=== PATIENT | male | born 1970 | race American Indian/Alaskan Native ===

== ENCOUNTER 2022-05-08 22:15 | Inpatient (IN) | payer MEDICAID ==
[2022-05-08 22:55] LABS: BASOPHILS % (AUTO) 0.1 %; HCT - HEMATOCRIT 42.5 % (42.0-52.0); HGB - HEMOGLOBIN 14.6 g/dL (14.0-18.0); LYMPHOCYTES % (AUTO) 4.8 %; MEAN CORPUSCULAR HEMOGLOBIN 30.5 pg (27.0-31.0); MEAN CORPUSCULAR HGB CONC 34.4 g/dL (32.0-36.0); MEAN CORPUSCULAR VOLUME 88.7 fL (80.0-94.0); MEAN PLATELET VOLUME 11.9 fL (7.4-11.4); MONOCYTES % (AUTO) 4.5 %; PLT - PLATELET COUNT 322 10^3/uL (130-450); RED BLOOD COUNT 4.79 10^6/uL (4.70-6.10); RED CELL DISTRIBUTION WIDTH 12.2 % (12.0-15.0); VBG BASE EXCESS -0.5 mmol/L (-2 - +2); VBG OXYGEN SATURATION 66.1 % (60-80); VBG PH 7.372 (7.31-7.41); VBG PO2 33.7 mmHg (25-47); VBG TOTAL CO2 26.3 mmol/L (24-29); WHITE BLOOD COUNT 24.3 x10^3/uL (4.8-10.8)
[2022-05-08 22:58] LABS: KETONES, SERUM (ACETEST) SMALL (NEGATIVE)
[2022-05-08 22:59] LABS: ABNORMAL LYMPHS % (MANUAL) 0 %
[2022-05-08 23:11] LABS: ALBUMIN 3.2 g/dL (3.2-5.5); ALBUMIN/GLOBULIN RATIO 0.6 (1.0-2.2); ALKALINE PHOSPHATASE 420 IU/L (42-121); ALT ALANINE AMINOTRANSFERASE 74 IU/L (10-60); AST ASPARTATE AMINOTRANSFERASE 27 IU/L (10-42); BILIRUBIN,TOTAL 1.1 mg/dL (0.2-1.0); BUN - BLOOD UREA NITROGEN 27 mg/dL (6-20); CALCIUM 8.9 mg/dL (8.5-10.3); CARBON DIOXIDE - CO2 24 mmol/L (21-32); CHLORIDE 82 mmol/L (101-111); CREATININE 1.6 mg/dL (0.6-1.2); GFR - MDRD 46 (>89); LIPASE 23 U/L (22-51); PHOSPHORUS 4.9 mg/dL (2.5-4.6); POTASSIUM 4.4 mmol/L (3.5-5.0); SODIUM 124 mmol/L (135-145); TOTAL PROTEIN 8.5 g/dL (6.7-8.2)
[2022-05-08 23:12] LABS: GLUCOSE 837 mg/dL (70-100)
--- NOTE | 2022-05-08 23:25 | ED Physician Documentation ---
History of Present Illness - Stated complaint Stated Complaint: DIABETIC SHOCK - Chief complaint Chief Complaint: General - History obtained from History obtained from: Patient - Additonal information Additional information: HPI from patient. My HPI and review of systems is somewhat limited due to patient being terse with answers to my questions; some of his answers are irrelevant to the question as ked. Patient tells me he is here because "I am dehydrated". I asked him what makes him feel he is dehydrated, tells me "I am diabetes type 2" And that he has been "thirsty" for "a few days". Patient tells me he is supposed to be taking insulin but hasn't taken insulin, nor any medication, for approximately a year. He says the reason for this is that his insurance will not cover any medications.He has had nausea but no vomiting. He describes very little p.o. intake over the past few days, although when I asked him why he is not taking in much by mouth, he returns to telling me he is dehydrated and feels very thirsty.He tells me "I have been here before, check my chart". Review of Systems Constitutional: denies: Fever GI: reports: Nausea. denies: Abdominal Pain, Vomiting Neurologic: denies: Generalized weakness, Focal weakness, Numbness, Headache PD PAST MEDICAL HISTORY - Past Medical History Endocrine/Autoimmune: Other (patient tells me he is "diabetes two" but also says he is supposed to be taking insulin) - Present Medications Home Medications: Ambulatory Orders Medication Instructions Recorded Confirmed No Known Home Medications 05/08/22 05/08/22 - Allergies Allergies/Adverse Reactions: Allergies Allergy/AdvReac Type Severity Reaction Status Date / Time No Known Drug Allergies Allergy Verified 05/08/22 22:20 PD ED PE NORMAL - Vitals Vital signs reviewed: Yes - General General: Alert and oriented X 3, No acute distress, Well developed/nourished - HEENT HEENT: Other (dry mucous membranes) - Neck Neck: Supple, no meningeal sign - Cardiac Cardiac: No murmur - Respiratory Respiratory: No respiratory distress, Clear bilaterally - Abdomen Abdomen: Soft, Non tender - Derm Derm: Normal color, Warm and dry - Extremities Extremities: No edema - Neuro Neuro: Alert and oriented X 3, Normal speech Eye Opening: Spontaneous Motor: Obeys Commands Verbal: Oriented GCS Score: 15 PD ED PE EXPANDED - Cardiac Cardiac: Tachy, Regular Rhythm Results - Vitals Vitals: Vital Signs - 24 hr 05/08/22 05/08/22 05/09/22 22:20 22:53 00:00 Temperature 36.5 C Heart Rate 120 H 118 H 132 H Respiratory 16 16 21 Rate Blood Pressure 130/100 H 162/115 H 141/104 H O2 Saturation 96 97 99 05/09/22 01:05 Temperature Heart Rate 125 H Respiratory 23 Rate Blood Pressure 143/112 H O2 Saturation 98 Oxygen O2 Source Room air - Labs Labs: Laboratory Tests 05/08/22 05/08/22 05/08/22 22:45 22:45 22:45 WBC 24.3 H RBC 4.79 Hgb 14.6 Hct 42.5 MCV 88.7 MCH 30.5 MCHC 34.4 RDW 12.2 Plt Count 322 MPV 11.9 H Neut # (Auto) Not Reportable Lymph # (Auto) Not Reportable [place] # (Auto) Not Reportable Eos # (Auto) Not Reportable Baso # (Auto) Not Reportable Absolute Nucleated RBC Not Reportable Total Counted 100 Band Neuts % (Manual) 2 Abnorm Lymph % (Manual) 0 Nucleated RBC % Not Reportable Neutrophils # (Manual) 17.7 H Lymphocytes # (Manual) 4.6 H Monocytes # (Manual) 1.0 Eosinophils # (Manual) 1.0 H Basophils # (Manual) 0.0 Differential Comment MANUAL DIFFERENTIAL Platelet Estimate NORMAL (130-450,000) RBC Morph Micro Appear NORMAL APPEARANCE VBG pH 7.372 VBG pCO2 44.0 VBG pO2 33.7 VBG HCO3 25.0 VBG Total CO2 26.3 VBG O2 Saturation 66.1 VBG Base Excess -0.5 Sodium 124 L Potassium 4.4 Chloride 82 L Carbon Dioxide 24 Anion Gap 18.0 H BUN 27 H Creatinine 1.6 H Estimated GFR (MDRD) 46 L Glucose 837 H* Calcium 8.9 Phosphorus 4.9 H Magnesium 2.0 Total Bilirubin 1.1 H AST 27 ALT 74 H Alkaline Phosphatase 420 H Total Protein 8.5 H Albumin 3.2 Globulin 5.3 H Albumin/Globulin Ratio 0.6 L Lipase 23 Urine Color Urine Clarity Urine pH Ur Specific [place] Urine Protein Urine Glucose (UA) Urine Ketones Urine Occult Blood Urine Nitrite Urine Bilirubin Urine Urobilinogen Ur Leukocyte Esterase Ur Microscopic Review Urine Culture Comments Nasal Adenovirus (PCR) Nasal B. parapertussis DNA (PCR) Nasal Coronavir 229E PCR Nasal Coronavir HKU1 PCR Nasal Coronavir NL63 PCR Nasal Coronavir OC43 PCR Nasal Enterovir/Rhinovir PCR Nasal Influenza B PCR Nasal Influenza A PCR Nasal Parainfluen 1 PCR Nasal Parainfluen 2 PCR Nasal Parainfluen 3 PCR Nasal Parainfluen 4 PCR Nasal RSV (PCR) Nasal B.pertussis DNA PCR Nasal C.pneumoniae (PCR) Matt Human Metapneumo PCR Nasal M.pneumoniae (PCR) Nasal SARS-CoV-2 (PCR) Serum Ketones SMALL H 05/08/22 05/08/22 05/09/22 23:47 23:56 01:03 WBC RBC Hgb Hct MCV MCH MCHC RDW Plt Count MPV Neut # (Auto) Lymph # (Auto) [place] # (Auto) Eos # (Auto) Baso # (Auto) Absolute Nucleated RBC Total Counted Band Neuts % (Manual) Abnorm Lymph % (Manual) Nucleated RBC % Neutrophils # (Manual) Lymphocytes # (Manual) Monocytes # (Manual) Eosinophils # (Manual) Basophils # (Manual) Differential Comment Platelet Estimate RBC Morph Micro Appear VBG pH VBG pCO2 VBG pO2 VBG HCO3 VBG Total CO2 VBG O2 Saturation VBG Base Excess Sodium Potassium Chloride Carbon Dioxide Anion Gap BUN Creatinine Estimated GFR (MDRD) Glucose 525 H* Calcium Phosphorus Magnesium Total Bilirubin AST ALT Alkaline Phosphatase Total Protein Albumin Globulin Albumin/Globulin Ratio Lipase Urine Color YELLOW Urine Clarity CLEAR Urine pH 6.0 Ur Specific [place] <=1.005 Urine Protein NEGATIVE Urine Glucose (UA) >=1000 H Urine Ketones NEGATIVE Urine Occult Blood TRACE-INTA Urine Nitrite NEGATIVE Urine Bilirubin NEGATIVE Urine Urobilinogen 0.2 (NORMAL) Ur Leukocyte Esterase NEGATIVE Ur Microscopic Review NOT INDICATED Urine Culture Comments NOT INDICATED Nasal Adenovirus (PCR) NOT DETECTED Nasal B. parapertussis DNA (PCR) NOT DETECTED Nasal Coronavir 229E PCR NOT DETECTED Nasal Coronavir HKU1 PCR NOT DETECTED Nasal Coronavir NL63 PCR NOT DETECTED Nasal Coronavir OC43 PCR NOT DETECTED Nasal Enterovir/Rhinovir PCR NOT DETECTED Nasal Influenza B PCR NOT DETECTED Nasal Influenza A PCR NOT DETECTED Nasal Parainfluen 1 PCR NOT DETECTED Nasal Parainfluen 2 PCR NOT DETECTED Nasal Parainfluen 3 PCR NOT DETECTED Nasal Parainfluen 4 PCR NOT DETECTED Nasal RSV (PCR) NOT DETECTED Nasal B.pertussis DNA PCR NOT DETECTED Nasal C.pneumoniae (PCR) NOT DETECTED Matt Human Metapneumo PCR NOT DETECTED Nasal M.pneumoniae (PCR) NOT DETECTED Nasal SARS-CoV-2 (PCR) NOT DETECTED Serum Ketones PD Medical Decision Making - ED course Complexity details: reviewed old records, reviewed results, re-evaluated patient, considered differential, d/w patient ED course: Labs ordered and results reviewed by me: CBC, VBG, serum ketones,ER abdominal panel, UA. Most notable abnormalities on these tests include a white blood cell count of 24.3, blood sugar of 837, hyponatremia with sodium of 124, small serum ketones. Also noted are elevated BUN and creatinine (BUN 27, creatinine 1.6).Urinalysis shows glycosuria but no ketonuria. Is given 10 units of regular insulin IV as well as 2 L of normal saline. After these interventions, on recheck of fingerstick for blood sugar, the result is "high". Thus a serum blood glucose is ordered and the lab result returns with blood glucose of 525. Note that at the time of this patient's presentation, as well as at the time of dictation of this note, this patient's chart has not yet been merged with previous visits to this ER. At the time of the dictation of this chart, [employer] indicates that this patient has no previous visits to this hospital. However, when [facility] records for this patient's name, I am able to find 3 previous ER visits, 1 of which resulted in an inpatient stay. Patient was admitted to this hospital December 18, 2015 for new onset of diabetes and was discharged with prescriptions that included insulin and a glucometer. I also note that when he was first admitted on the December 18, 2015 visit, he had mildly elevated creatinine (1.4), but this normalized after IV fluids and treatment and subsequent creatinine levels were normal. Thus, it would appear that the BUN and creatinine obtained on today's visit are not his baseline (although the previous information is from 2016). I discussed this case with the telehealth physician and they accept patient for admission to [facility]. Departure - Departure Disposition: 66 [facility] DC/Xfer Clinical Impression: Diabetic ketoacidosis Qualifiers: Diabetes mellitus type: type 1 Diabetes mellitus complication detail: without coma Qualified Code(s): E10.10 - Type 1 diabetes mellitus with ketoacidosis without coma Condition: Stable Discharge Date/Time: 05/09/22 02:27
[2022-05-08 23:31] LABS: BAND NEUTROPHILS % (MANUAL) 2 %; LYMPHOCYTES # (MANUAL) 4.6 10^3/uL (1.5-3.5); LYMPHOCYTES % (MANUAL) 19 %; NEUTROPHILS # (MANUAL) 17.7 10^3/uL (1.5-6.6); RBC MORPHOLOGY (MULTIPLE) NORMAL APPEARANCE (NORMAL)
[2022-05-08 23:32] LABS: DIFFERENTIAL COMMENT MANUAL DIFFERENTIAL; PLATELET ESTIMATE, MANUAL NORMAL (130-450,000) (NORMAL)
[2022-05-08] MEDS ORDERED: INSULIN REGULAR HUMAN 100 UNIT/1 ML 10 ML MDV IVP STA (23:33)
[2022-05-08] MEDS ORDERED: SODIUM CHLORIDE 0.9% 1,000 ML IV STA (23:33)
[2022-05-09] LABS: BILIRUBIN,URINE NEGATIVE (NEGATIVE); GLUCOSE, URINE (UA) >=1000 mg/dL (NEGATIVE); KETONES,URINE (UA) NEGATIVE (NEGATIVE); LEUKOCYTE ESTERASE, URINE NEGATIVE (NEGATIVE); NITRITE,URINE NEGATIVE (NEGATIVE); OCCULT BLOOD,URINE TRACE-INTA (NEGATIVE); PROTEIN,URINE NEGATIVE (NEGATIVE); UROBILINOGEN,URINE 0.2 (NORMAL) E.U./dL (NORMAL)
[2022-05-09 00:04] LABS: CLARITY,URINE CLEAR (CLEAR)
[2022-05-09 00:54] LABS: B. PARAPERTUSSIS- RESP PCR PAN NOT DETECTED; B. PERTUSSIS- RESP PCR PANEL NOT DETECTED; C. PNEUMONIAE- RESP PCR PANEL NOT DETECTED; CORONAVIRUS 229E-RESP PCR NOT DETECTED; CORONAVIRUS HKU1-RESP PCR NOT DETECTED; CORONAVIRUS NL63-RESP PCR NOT DETECTED; CORONAVIRUS OC43-RESP PCR NOT DETECTED; HUMAN METAPNEUMOVIRUS NOT DETECTED; INFLUENZA A- RESP PCR PANEL NOT DETECTED; INFLUENZA B - RESP PCR PANEL NOT DETECTED; M. PNEUMONIAE- RESP PCR PANEL NOT DETECTED; PARAINFLUENZA VIRUS 1 NOT DETECTED; PARAINFLUENZA VIRUS 2 NOT DETECTED; PARAINFLUENZA VIRUS 3 NOT DETECTED; PARAINFLUENZA VIRUS 4 NOT DETECTED; RHINOVIRUS/ENTEROVIRUS NOT DETECTED; RSV- RESP PCR PANEL NOT DETECTED; SARS-CoV-2 -RESP PCR PANEL NOT DETECTED
[2022-05-09] MEDS ORDERED: ONDANSETRON 4 MG/2 ML VIAL IVP PRN (01:32)
--- NOTE | 2022-05-09 01:46 | HISTORY & PHYSICAL EXAMINATION ---
Chief Complaint - Chief Complaint Chief Complaint: dehydrated History of Present Illness - Admitted From Admitted From:: ED - History Obtained From Records Reviewed: ED records History obtained from: ED provider and the pt - History of Present Illness HPI Comment/Other: This is a 51 yo male with diabetes who does not take any diabetic meds at home c khris to the ED tonight for cc of feeling dehydrated for few days. Pt also has some nausea but no emesis. In the ED, the lab showed glucose of 830, high anion gap, leukocytosis and JILLIAN vs CKD III, pt received 10 units of IV Insulin x1 which brought down his glucose to 530, no clinical signs of infection per the ED provider, and the hospitalist was contacted to admit the pt for further management. History - Past Medical History Endocrine/Autoimmune: reports: Type 2 diabetes - Past Surgical History Other past surgical history: none - Family & Social History Family History Comment/Other: non-contributory - Substance History Use: Uses substance without health or social issues: NONE Abuse: Recurrent use of substance despite neg consequences: NONE Dependence: Experiences withdrawal or developed tolerances: NONE Meds/Allgy - Home Medications Home Medications: Ambulatory Orders Medication Instructions Recorded Confirmed No Known Home Medications 05/08/22 05/08/22 - Allergies Allergies/Adverse Reactions: Allergies Allergy/AdvReac Type Severity Reaction Status Date / Time No Known Drug Allergies Allergy Verified 05/08/22 22:20 Review of Systems - Other Findings Other Findings: For Positive ROS symptoms see above. General: negative for fevers, chills. Respiratory: negative for cough, wheezing Cardiovascular: negative for chest pain Gastrointestinal - negative for abdominal pain, vomiting, diarrhea Genitourinary - negative for flank pain, hematuria, dysuria or trouble voiding symptoms. Exam - Vital Signs Reviewed Vital Signs: Yes Vital Signs: Vital Signs x48h Temp Pulse Resp BP Pulse Ox 05/09/22 01:05 125 H 23 143/112 H 98 05/09/22 00:00 132 H 21 141/104 H 99 05/08/22 22:53 118 H 16 162/115 H 97 05/08/22 22:20 36.5 C 120 H 16 130/100 H 96 - Physical Exam Comments/Other: (with a help of the ED provider) GENERAL: Patient A and O x 3, NAD. HEENT: Atraumatic, EOMI. PULMONARY: CTAB, equal aeration bilaterally. CARDIAC: Sinus tachy, no murmurs. GASTROINTESTINAL: NABS, soft, non-tender. NEURO: CN 2 to 12 grossly intact, moving all 4 exts. Conclusion/Plan - Lab Results Lab results reviewed: Yes Fish Bones: 05/08/22 22:45 05/09/22 01:03 - Other Other Results/Comments: Assessment/Plan: 1. Mild DKA vs HHS 2. SIRS vs Sepsis 3. HTN 4. JILLIAN vs CKD III 5. Hyponatremia - Started him on DKA/HHS protocol with insulin drip, check poc glucose q1hrs while on the drip, check renal panel q4hrs, changed to SQ insulin when the anion gap closes, bicarb and pH are fine, started him on IVF hydration, electrolytes replacement protocol, the ED provider told me it is sinus tachy, UA and respiratory panel are negative, will check bld culture and CXR for leukocytosis, IVF for JILLIAN and hypoNa, heparin sq bid for DVT prophylaxis.
[2022-05-09] MEDS ORDERED: INSULIN REGULAR HUMAN 100 UNIT in SODIUM CHLORIDE 0.9% 100ML 99 ML IV SCH (02:00)
[2022-05-09] MEDS ORDERED: SODIUM CHLORIDE 0.9% 1,000 ML IV SCH (02:00)
[2022-05-09] MEDS ORDERED: INSULIN REGULAR HUMAN 100 UNIT/1 ML 10 ML MDV ONE (02:28)
--- NOTE | 2022-05-09 02:42 | XRAY Report ---
PROCEDURE: Chest 1 View X-Ray INDICATIONS: leukocytosis TECHNIQUE: One view of the chest was acquired. COMPARISON: None. FINDINGS: Surgical changes and devices: None. Lungs and pleura: No pleural effusions or pneumothorax. Lungs are clear. Mediastinum: Mediastinal contours appear normal. Heart size is normal. Bones and chest wall: No suspicious bony lesions. Overlying soft tissues appear unremarkable. IMPRESSION: 1. No acute cardiopulmonary disease. Reviewed by: Keagan Ayers MD on 05/09/2022 2:41 AM [facility] Approved by: Keagan Ayers MD on 05/09/2022 2:41 AM [facility] Station ID: [id number]
[2022-05-09] MEDS: SODIUM CHLORIDE FLUSH 0.9% 10 ML SYRINGE IVP PRN ×3 (02:52→21:28)
[2022-05-09 03:57] LABS: CALCIUM 9.4 mg/dL (8.5-10.3); CREATININE 1.3 mg/dL (0.6-1.2); MAGNESIUM 2.1 mg/dL (1.7-2.8); PHOSPHORUS 3.2 mg/dL (2.5-4.6); POTASSIUM 3.7 mmol/L (3.5-5.0)
[2022-05-09] MEDS: POTASSIUM CHLOR 10 MEQ/100 ML 10 MEQ/100 ML BAG IV SCH ×2 (05:15→06:14)
[2022-05-09 05:35] LABS: CALCIUM, IONIZED 1.14 mmol/L (1.15-1.33); VBG PH 7.49 (7.31-7.41)
[2022-05-09 05:39] LABS: BASOPHILS % (AUTO) 0.1 %; HCT - HEMATOCRIT 40.1 % (42.0-52.0); HGB - HEMOGLOBIN 14.2 g/dL (14.0-18.0); LYMPHOCYTES % (AUTO) 8.2 %; MEAN CORPUSCULAR HEMOGLOBIN 30.7 pg (27.0-31.0); MEAN CORPUSCULAR HGB CONC 35.4 g/dL (32.0-36.0); MEAN CORPUSCULAR VOLUME 86.8 fL (80.0-94.0); MEAN PLATELET VOLUME 11.5 fL (7.4-11.4); MONOCYTES % (AUTO) 4.4 %; NEUTROPHILS % (AUTO) 86.8 %; PLT - PLATELET COUNT 299 10^3/uL (130-450); RED BLOOD COUNT 4.62 10^6/uL (4.70-6.10); RED CELL DISTRIBUTION WIDTH 12.2 % (12.0-15.0); WHITE BLOOD COUNT 22.9 x10^3/uL (4.8-10.8)
[2022-05-09 05:40] LABS: ABNORMAL LYMPHS % (MANUAL) 0 %
[2022-05-09 05:44] LABS: CALCIUM 9.3 mg/dL (8.5-10.3); CREATININE 1.1 mg/dL (0.6-1.2); POTASSIUM 3.7 mmol/L (3.5-5.0)
[2022-05-09 05:47] LABS: ALBUMIN 2.8 g/dL (3.2-5.5); CALCIUM 9.4 mg/dL (8.5-10.3); CREATININE 1.1 mg/dL (0.6-1.2); PHOSPHORUS 2.7 mg/dL (2.5-4.6); POTASSIUM 3.8 mmol/L (3.5-5.0)
[2022-05-09 05:48] LABS: MAGNESIUM 2.1 mg/dL (1.7-2.8); PHOSPHORUS 2.7 mg/dL (2.5-4.6)
[2022-05-09 06:00] LABS: BAND NEUTROPHILS % (MANUAL) 2 %; DIFFERENTIAL COMMENT MANUAL DIFFERENTIAL; LYMPHOCYTES % (MANUAL) 13 %; MONOCYTES # (MANUAL) 0.9 10^3/uL (0.0-1.0); PLATELET ESTIMATE, MANUAL NORMAL (130-450,000) (NORMAL); RBC MORPHOLOGY (MULTIPLE) NORMAL APPEARANCE (NORMAL)
[2022-05-09] MEDS: PANTOPRAZOLE 40 MG VIAL IVP SCH (07:17)
[2022-05-09 07:55] LABS: MAGNESIUM 2.2 mg/dL (1.7-2.8); PHOSPHORUS 2.8 mg/dL (2.5-4.6)
[2022-05-09 07:58] LABS: CREATININE 1.1 mg/dL (0.6-1.2); POTASSIUM 3.9 mmol/L (3.5-5.0)
[2022-05-09] MEDS: DEXTROSE 5%-0.9% NACL 1,000 ML IV SCH ×2 (08:21→16:34)
[2022-05-09] MEDS: HEPARIN 5,000 UNIT/ML VIAL SUBQ SCH ×2 (09:10→20:43)
[2022-05-09] MEDS: SODIUM CHLORIDE FLUSH 0.9% 10 ML SYRINGE IVP SCH ×3 (09:15→21:28)
[2022-05-09 10:14] LABS: ESTIMATED AVERAGE GLUCOSE 435 mg/dL (70-100); HEMOGLOBIN A1c% 16.8 % (4.27-6.07)
--- NOTE | 2022-05-09 11:39 | PROVIDER PROGRESS NOTE ---
Hospitalist Cross-cover Note - Cross-Cover Note Cross-Cover Note: I reviewed all his labs. This morning his serum glucose is 170-200, serum ketones are negative. Patient is not nauseated, is thirsty and is eager to drink and be started on diet since he is not nauseated I questioned the patient about his diabetic management: He says he has not been on a diabetic diet and does not know why. He says he was on insulin for 6 months over a year ago. Over the past 1 year, he reports that his PCP has ordered insulin for him but the pharmacy has not filled it and he changed doctors and had the same problem not getting insulin from the next provider and therefore has been without insulin for 1 year. No doctor has put him on oral agents during that year, he states. Exam is unremarkable today except he is disheveled and his speech is somewhat slurred and is very rather Impression: DKA-resolved DM type II Noncompliance with medical management Plan: Stop insulin drip Started diabetic diet Start Lantus 10 units subq in p.m. Continue with sliding scale insulin coverage and start fingerstick checks with meals Nutrition consult for diabetic teaching Social work help may be needed if there is indeed problems filling an insulin prescription for this may.
[2022-05-09] MEDS: INSULIN LISPRO 300 UNIT/3 ML PEN SUBQ SCH ×3 (12:36→20:44)
[2022-05-09] MEDS ORDERED: INSULIN GLARGINE-YFGN 300 UNIT/3 ML PEN SUBQ SCH (21:00)
[2022-05-10] MEDS: DEXTROSE 5%-0.9% NACL 1,000 ML IV SCH (01:07)
[2022-05-10 04:45] LABS: BASOPHILS % (AUTO) 0.1 %; EOSINOPHILS # (AUTO) 0.1 10^3/uL (0.0-0.7); EOSINOPHILS % (AUTO) 0.5 %; HCT - HEMATOCRIT 36.2 % (42.0-52.0); HGB - HEMOGLOBIN 12.5 g/dL (14.0-18.0); LYMPHOCYTES # (AUTO) 1.8 10^3/uL (1.5-3.5); LYMPHOCYTES % (AUTO) 13.6 %; MEAN CORPUSCULAR HEMOGLOBIN 30.6 pg (27.0-31.0); MEAN CORPUSCULAR HGB CONC 34.5 g/dL (32.0-36.0); MEAN CORPUSCULAR VOLUME 88.5 fL (80.0-94.0); MEAN PLATELET VOLUME 11.2 fL (7.4-11.4); MONOCYTES # (AUTO) 0.6 10^3/uL (0.0-1.0); MONOCYTES % (AUTO) 4.5 %; NEUTROPHILS # (AUTO) 10.9 10^3/uL (1.5-6.6); NEUTROPHILS % (AUTO) 80.9 %; PLT - PLATELET COUNT 259 10^3/uL (130-450); RED BLOOD COUNT 4.09 10^6/uL (4.70-6.10); RED CELL DISTRIBUTION WIDTH 12.2 % (12.0-15.0); WHITE BLOOD COUNT 13.4 x10^3/uL (4.8-10.8)
[2022-05-10 04:54] LABS: CALCIUM 8.5 mg/dL (8.5-10.3); CREATININE 0.8 mg/dL (0.6-1.2); MAGNESIUM 1.9 mg/dL (1.7-2.8); PHOSPHORUS 2.1 mg/dL (2.5-4.6)
[2022-05-10] MEDS: PANTOPRAZOLE 40 MG VIAL IVP SCH (06:31)
[2022-05-10] MEDS: SODIUM CHLORIDE FLUSH 0.9% 10 ML SYRINGE IVP PRN (06:31)
[2022-05-10] MEDS: NEUTRA-PHOS 250 MG TABLET PO SCH ×2 (06:31→08:20)
[2022-05-10] MEDS: HEPARIN 5,000 UNIT/ML VIAL SUBQ SCH (08:19)
[2022-05-10] MEDS: INSULIN LISPRO 300 UNIT/3 ML PEN SUBQ SCH (08:21)
[2022-05-10] MEDS: SODIUM CHLORIDE FLUSH 0.9% 10 ML SYRINGE IVP SCH (08:21)
[2022-05-10] MEDS ORDERED: SODIUM CHLORIDE 0.9% 1,000 ML IV SCH (09:00)
[2022-05-10] MEDS ORDERED: INSULIN LISPRO 300 UNIT/3 ML PEN SUBQ SCH (12:00)
[2022-05-10] MEDS ORDERED: polyethylene glycoL 3350 17 GM PACKET PO SCH (13:00)
--- NOTE | 2022-05-10 13:06 | Discharge Plan ---
Discharge Plan Problem Reviewed?: Yes Disposition: Home, Self Care Condition: Fair Prescriptions: Blood-Glucose Meter [Glucometer] 1 each [facility] #1 each Insulin Lispro [Humalog Kwikpen U-100] 2 - 10 unit SUBQ 0800,1200,1700,2100 #1 ea Insulin Glargine [Lantus Solostar] 10 unit SUBQ BID #1 ea Lancets/Blood Glucose Strips [Pogo Automatic Test Cartridge] 1 each [facility] #120 ea Diet: Diabetic (PLEASE start eating a low-carb, diabetic diet) Activity Restrictions: Activity as Tolerated Shower Restrictions: No Instruction Topics: DKA Prevent Ch Health Concerns: You were hospitalized in the ICU to treat diabetic ketoacidosis, which is a serious complication for a Diabetic. You said you have not used Insulin in the past 1 year, because you haven't been able to get a prescription in the past year. We have found that you have not had a doctor for the last 2-3 years, not just the past 1 year. For an insulin- dependent diabetic to not take insulin for such a long period of time, as 2-3 years, is a serious threat to your health and wellbeing. You need to take your diabetes more seriously. You are being discharged home with a prescription for long-acting Insulin and short acting correction insulin. Take the long acting Insulin twice a day. You need to check your blood sugar before meals 3 times a day and before bedtime and take the short acting insulin at a dose based on a scale. The scale has been provided for you. There are also prescriptions for 1 month of lancets, glucometer strips and a new glucometer has been ordered for you. These Insulin prescriptions will only last you 1 month, after that the Insulin prescriptions need to be ordered by an office doctor. If you are using drugs, stop that, because that is also harming your health. Our staff has explained how, and walked you through how, to get a doctor's appointment with a provider that will take your health insurance. Please make an appointment soon to see a provider in [facility]. The [facility] clinic here also has a Diabetic division that can help you. To reach them call [phone], ext [phone]. Plan of Treatment: As above. Care Goals: Improvement in symptoms and stabilization are the goals. Assessment: These instructions are provided for you as a reminder. Follow-Up Care: [facility] - Diabetes Ed No Smoking: If you smoke, Please STOP! Call for help.
[2022-05-10 13:59] VITALS: BP 163/102
--- NOTE | 2022-05-10 14:16 | DISCHARGE SUMMARY ---
Discharge Summary Admit Date: 05/09/22 Discharge Date: 05/10/22 Discharging Provider: Dr Hanna Cooper Primary Care Provider: None Condition at Discharge: Fair Discharge Disposition: 01 Home, Self Care - HPI History of Present Illness: This is a 51 yo male with diabetes who does not take any diabetic meds at home came to the ED tonight for cc of feeling dehydrated for few days. Pt also has some nausea but no emesis. In the ED, the lab showed glucose of 830, serum ketones present and small, high anion gap of 18, pH of 7.3, leukocytosis of 24 and JILLIAN vs CKD III (BUN/creat 27/1.6), serum sodium 124. The pt received 10 units of IV Insulin x1 which brought down his glucose to 530. He had no clinical signs of infection per the ED provider, and the Hospitalist [facility] night doctor was contacted to admit the pt for further management of DKA and dehydration. The patient was visibly dehydrated. He stated he had not been able to get Insulin from his doctor, or another (new) doctor, for the last 1 year, because "it was not prescribed correctly and the pharmacy would not fill it". He does not follow a Diabetic diet he said. He used to take Insulin for about 6 mos, but that was years ago. No doctor has put him on oral agents during that year, he stated. He lives with a roommate. He does not work, he said, "because no one will hire a diabetic", but is not on disability. He denied alcohol or substance abuse. No tox screen was done. - HOSPITAL COURSE Hospital Course: 1) DKA He was admitted to the ICU and started on a DKA protocol with an insulin drip and saline iv. Clear liquid diet was quickly advanced to a solid diabetic diet, which he was able to tolerate. When the serum ketones became negative, he was put on IV saline. He was started on Lantus 10 units subq in p.m and sliding scale Reg Insulin coverage. His glu ran in the 300's. 2) DM type 2 His A1c came back at 16.8, indicating extremely poor diabetic control. Nutrition consult was requested for diabetic teaching. He was advised to start following a diabetic diet. He was discharged home on new prescriptions (that would be covered by his insurance): NPH insulin 10 units subq twice daily, and Regular insulin, dosed on a sliding scale and he was given the scale to display on his r efrigerator. New prescriptions were also sent for a glucometer, lancets and glucometer strips. 3) Leukocytosis WBC of 24 was felt to be from demargination since there were no signs of a source of infection. The next day his white blood count was 22 and on day of discharge was 13, without receiving any antibiotics. 4) Hyponatremia This was likely pseudohyponatremia because of the very elevated glucose. He was started on saline. The next several sodium levels were in a normal range, as the serum glu improved. 5) JILLIAN His tachycardia and his elevated BUN/creatinine normalized with IV saline hydration that was given for several days. 6) Noncompliance with medical management On the day of discharge she was advised to get a PCP for refills and further management. Our staff and project management specialist helped him, after noting that his current health insurance did not let him see a provider (during the last 1 year ) that was associated with [facility], and therefore suspected that he had not seen a doctor in 2 to 3 years. He admitted to that finally. Therefore this man has not had any diabetic management for 2 to 3 years. He was instructed as to the importance of managing his diabetes by Hospitalist and other staff. He was offered to come to the [facility] Diabetic Education division, for getting help as well. - ALLERGIES Allergies/Adverse Reactions: Allergies Allergy/AdvReac Type Severity Reaction Status Date / Time No Known Drug Allergies Allergy Verified 05/09/22 09:44 - MEDICATIONS Home Medications: Ambulatory Orders Medication Instructions Recorded Confirmed Blood-Glucose Meter [Glucometer] 1 each [facility] #1 each 05/10/22 Insulin Glargine [Lantus Solostar] 10 unit SUBQ BID #1 ea 05/10/22 Insulin Lispro [Humalog Kwikpen 2 - 10 unit SUBQ 05/10/22 U-100] 0800,1200,1700,2100 #1 ea Lancets/Blood Glucose Strips [Pogo 1 each [facility] #120 ea 05/10/22 Automatic Test Cartridge] - PHYSICAL EXAM AT DISCHARGE General Appearance: positive: No acute distress, Alert, Other (Disheveled) Eyes Bilateral: positive: Normal inspection ENT: positive: No signs of dehydration Neck: positive: Nml inspection, No JVD Respiratory: positive: No respiratory distress, Breath sounds nml Cardiovascular: positive: Regular rate & rhythm, No murmur Abdomen: positive: Nml bowel sounds, No distention, Tenderness (and firmness from constipation suspected) Skin: positive: Warm, Dry Extremities: positive: Non-tender, No pedal edema, Other (Poor hygiene) Neurologic/Psychiatric: positive: Oriented x3, Motor nml - LABS Result Diagrams: 05/10/22 04:35 05/10/22 04:35 - DIAGNOSTIC IMAGING Diagnostic Imaging Results: Final report reviewed - FOLLOW UP Follow Up: Established with a new PCP in the next several weeks. - TIME SPENT Time Spent in Discharge (Minutes): 50
== END 2022-05-10 14:52 | disposition home or self-care (01) | DRG 638 ==
LOC: EDBD → ED 22:15 → ICU 05-09 02:14
PROVIDERS: ADMIT Hospitalist; ATTEND Internal Medicine
DX: E11.10 Type 2 diabetes mellitus with ketoacidosis without coma (principal); E87.1 Hypo-osmolality and hyponatremia; N17.9 Acute kidney failure, unspecified; Z68.1 Body mass index [BMI] 19.9 or less, adult; E86.0 Dehydration; T38.3X6A Underdosing of insulin and oral hypoglycemic [antidiabetic] drugs, initial encounter; D72.829 Elevated white blood cell count, unspecified; I10 Essential (primary) hypertension; Z20.822 Contact with and (suspected) exposure to COVID-19; Z71.3 Dietary counseling and surveillance; Z79.4 Long term (current) use of insulin; Z91.119 Patient's noncompliance with dietary regimen due to unspecified reason; Z91.138 Patient's unintentional underdosing of medication regimen for other reason
CPT/HCPCS: 36415; 71045; 80048; 80053; 80069; 81003; 82009; 82330; 82803; 82947; 83036; 83690; 83735; 84100; 84132; 85025; 87040; 87150; 87633; 96360; 99285; A9270; J1815; 81001; 87086

== ENCOUNTER 2022-08-26 08:30 | Outpatient (CLI) | payer MEDICAID ==
[2022-08-26 11:43] LABS: BASOPHILS # (AUTO) 0.1 10^3/uL (0.0-0.1); BASOPHILS % (AUTO) 0.4 %; EOSINOPHILS # (AUTO) 0.2 10^3/uL (0.0-0.7); EOSINOPHILS % (AUTO) 1.9 %; HCT - HEMATOCRIT 29.8 % (42.0-52.0); HGB - HEMOGLOBIN 9.7 g/dL (14.0-18.0); LYMPHOCYTES # (AUTO) 1.7 10^3/uL (1.5-3.5); MEAN CORPUSCULAR HEMOGLOBIN 28.4 pg (27.0-31.0); MEAN CORPUSCULAR HGB CONC 32.6 g/dL (32.0-36.0); MEAN CORPUSCULAR VOLUME 87.1 fL (80.0-94.0); MEAN PLATELET VOLUME 9.1 fL (7.4-11.4); MONOCYTES # (AUTO) 0.6 10^3/uL (0.0-1.0); MONOCYTES % (AUTO) 5.1 %; NEUTROPHILS # (AUTO) 8.7 10^3/uL (1.5-6.6); NEUTROPHILS % (AUTO) 77.4 %; PLT - PLATELET COUNT 401 10^3/uL (130-450); RED BLOOD COUNT 3.42 10^6/uL (4.70-6.10); RED CELL DISTRIBUTION WIDTH 14.3 % (12.0-15.0); WHITE BLOOD COUNT 11.3 x10^3/uL (4.8-10.8)
[2022-08-26 12:14] LABS: ALBUMIN 2.8 g/dL (3.2-5.5); ALBUMIN/GLOBULIN RATIO 0.4 (1.0-2.2); BILIRUBIN,TOTAL 0.3 mg/dL (0.2-1.0); CALCIUM 8.6 mg/dL (8.5-10.3); TOTAL PROTEIN 9.3 g/dL (6.7-8.2)
[2022-08-26 12:24] LABS: CREATININE 12.1 mg/dL (0.6-1.2)
== END 2022-08-26 08:45 | disposition home or self-care (01) ==
LOC: LAB.N 08:30
PROVIDERS: ATTEND Physician Assistant
DX: R19.00 Intra-abdominal and pelvic swelling, mass and lump, unspecified site (principal)
CPT/HCPCS: 36415; 80053; 83690; 85025

== ENCOUNTER 2022-08-26 13:11 | Observation (INO) | payer MEDICAID ==
[2022-08-26] MEDS ORDERED: SODIUM CHLORIDE 0.9% 1,000 ML IV STA ×2 (14:50→19:18)
[2022-08-26] MEDS ORDERED: LIDOCAINE 2% URO-JET 5 ML SYRINGE UR STA (14:50)
--- NOTE | 2022-08-26 14:56 | ED Physician Documentation ---
History of Present Illness - Stated complaint Stated Complaint: KIDNEY ISSUES/SENT BY - Chief complaint Chief Complaint: General - Additonal information Additional information: 51-year-old male was called by a local walk-in clinic provider and advised to come to the emergency department when laboratory testing today revealed acute kidney injury. He had been seen at the local walk-in clinic for evaluation of a lower abdominal mass and the plan was to work this up as an outpatient including CT and labs. Subsequently laboratory results revealed a BUN of 88 and a creatinine of 12. Last labs completed in April 2022 showed normal renal function. The patient is anxious in the emergency department. He states he has no history of previous kidney injuries. He states he has been urinating normally and feels like he empties his bladder. He denies taking any medications, NSAIDs or alcohol use. On exam he has a visibly distended hard mass in his lower abdomen that is revealed to be the bladder with a residual volume of nearly 2500 mL. Review of Systems Constitutional: denies: Fever, Chills Throat: reports: Reviewed and negative Cardiac: reports: Reviewed and negative Respiratory: reports: Reviewed and negative GI: reports: Other (Lower abdominal distention and firm palpable mass) PD PAST MEDICAL HISTORY - Past Medical History Cardiovascular: None Respiratory: None Endocrine/Autoimmune: None, Other GI: None : None HEENT: None Psych: None Musculoskeletal: None Derm: None - Past Surgical History Past Surgical History: No - Present Medications Home Medications: Ambulatory Orders Medication Instructions Recorded Confirmed Blood-Glucose Meter [Glucometer] 1 each [facility] #1 each 05/10/22 08/26/22 Insulin Glargine [Lantus Solostar] 10 unit SUBQ BID #1 ea 05/10/22 08/26/22 Insulin Lispro [Humalog Kwikpen 2 - 10 unit SUBQ 05/10/22 08/26/22 U-100] 0800,1200,1700,2100 #1 ea Lancets/Blood Glucose Strips [Pogo 1 each [facility] #120 ea 05/10/22 08/26/22 Automatic Test Cartridge] - Allergies Allergies/Adverse Reactions: Allergies Allergy/AdvReac Type Severity Reaction Status Date / Time No Known Drug Allergies Allergy Verified 05/09/22 09:44 - Social History Does the pt smoke?: Yes Smoking Status: Current every day smoker Does the pt drink ETOH?: Yes Does the pt have substance abuse?: No - Immunizations Immunizations are current?: Yes PD ED PE NORMAL - General General: Alert and oriented X 3, Well developed/nourished. No: No acute distress (Anxious) - HEENT HEENT: Atraumatic - Neck Neck: Supple, no meningeal sign, No adenopathy - Cardiac Cardiac: RRR, No murmur - Respiratory Respiratory: No respiratory distress, Clear bilaterally - Abdomen Abdomen: Normal bowel sounds, Soft. 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 Eye Opening: Spontaneous Motor: Obeys Commands Verbal: Oriented GCS Score: 15 Results - Vitals Vitals: Vital Signs - 24 hr 08/26/22 08/26/22 08/26/22 13:37 14:36 16:16 Temperature 36.1 C L Heart Rate 113 H 99 93 Respiratory 16 20 14 Rate Blood Pressure 150/106 H 146/107 H 183/111 H O2 Saturation 100 100 100 08/26/22 08/26/22 17:56 18:55 Temperature Heart Rate 102 H 102 H Respiratory 18 14 Rate Blood Pressure 170/110 H 138/96 H O2 Saturation 100 100 Oxygen O2 Source Room air - Labs Labs: Laboratory Tests 08/26/22 08/26/22 08/26/22 15:20 18:27 18:27 WBC 10.9 H RBC 3.63 L Hgb 10.2 L Hct 31.5 L MCV 86.8 MCH 28.1 MCHC 32.4 RDW 14.2 Plt Count 427 MPV 8.9 Neut # (Auto) 8.6 H Lymph # (Auto) 1.7 [place] # (Auto) 0.4 Eos # (Auto) 0.1 Baso # (Auto) 0.1 Absolute Nucleated RBC 0.00 Nucleated RBC % 0.0 Sodium 142 Potassium 4.1 Chloride 108 Carbon Dioxide 19 L Anion Gap 15.0 H BUN 77 H Creatinine 10.9 H* Estimated GFR (MDRD) 5 L Glucose 114 H Calcium 8.8 Total Bilirubin 0.5 AST < 10 L ALT 10 Alkaline Phosphatase 149 H Total Protein 9.4 H Albumin 2.7 L Globulin 6.7 H Albumin/Globulin Ratio 0.4 L Lipase 30 Urine Color YELLOW Urine Clarity HAZY Urine pH 6.5 Ur Specific [place] 1.015 Urine Protein TRACE Urine Glucose (UA) 100 H Urine Ketones NEGATIVE Urine Occult Blood LARGE H Urine Nitrite NEGATIVE Urine Bilirubin NEGATIVE Urine Urobilinogen 0.2 (NORMAL) Ur Leukocyte Esterase TRACE H Urine RBC TNTC H Urine WBC 6-10 H Ur Squamous Epith Cells NONE SEEN Urine Bacteria Rare Ur Microscopic Review INDICATED Urine Culture Comments INDICATED - Rads (name of study) CT abd Relevant Findings:: Final report received (Severe bladder distention causing severe bilateral hydroureteronephrosis.) PD Medical Decision Making - ED course Complexity details: reviewed results, re-evaluated patient, considered differential, d/w patient ED course: 51-year-old male was referred to the emergency department by walk-in provider for evaluation of acute kidney injury noted on labs obtained this morning by the walk-in clinic. Patient denies any previous history of renal failure. States he has been ur inating normally though he did go to the walk-in clinic for lower abdominal mass. On subsequent ED evaluation, CT imaging and bladder scan this appears to be the bladder which is severely distended with more than 2500 mL of urine noted. I am able to review the labs obtained by the walk-in clinic provider. Per my interpretation there is a mild anemia noted with a hemoglobin of 9.7. His electrolytes show mild hyponatremia sodium of 134. His potassium is not elevated. He has a BUN of 88 and a creatinine of 12. Given the Finding of acute renal injury as well as a CT scan that shows severe bladder distention resulting in bilateral hydroureteronephrosis, A Courtney catheter was placed to drain the bladder and 3100 ml immediately drained. This patient will most certainly require admission for further evaluation and monitoring of the renal failure. Unfortunately at this time there are no beds available to admit here to [facility]. He will board in the ER until a bed does become available. Patient continues to diurese while here in the emergency department. I have repeated his CBC and electrolytes. His anemia has improved with a hemoglobin of 10.4. His creatinine has also improved to 10.9. Patient will continue to board overnight in the emergency department pending bed availability tomorrow. Will write for maintenance IV fluids as well as repeat labs in the a.m. Patient will be signed out to my nighttime colleague to follow-up on any acute overnight events. Departure - Departure Disposition: [facility] DC/[place] Clinical Impression: Bladder outlet obstruction Acute kidney failure Qualifiers: Acute renal failure type: unspecified Qualified Code(s): N17.9 - Acute kidney failure, unspecified Condition: Fair
--- NOTE | 2022-08-26 15:05 | CT Report ---
PROCEDURE: ABDOMEN/PELVIS WO INDICATIONS: acute renal failure TECHNIQUE: Noncontrast 5 mm thick sections acquired from the diaphragms to the symphysis. 5 mm coronal and sagi ttal reformats were then performed. For radiation dose reduction, the following was used: automated exposure control, adjustment of mA and/or kV according to patient size. COMPARISON: None. FINDINGS: Image quality: Excellent. Lung bases and heart: Unremarkable. Liver: No solid mass. Gallbladder and biliary tree: Spleen: No splenomegaly. Pancreas: No pancreatic ductal dilation. Adrenals: No adrenal nodule. Kidneys and ureters: Severe bilateral hydroureteronephrosis. Severe distention of the bladder. Bowel and peritoneum: No bowel distension. No pathologic free fluid. Lymph nodes: No central or retroperitoneal adenopathy. Vessels: No infrarenal aortic aneurysm. PELVIS Reproductive organs: Unremarkable. Bladder: No abnormal wall thickening, accounting for underdistension. Pelvic lymph nodes: No pelvic adenopathy by size criteria. Bones: Degenerative changes at L4-5 and L5-S1. Pars defects of L5-S1 with grade 1 anterolisthesis. Other: No significant ventral or inguinal hernia. IMPRESSION: Severe bladder distention causing severe bilateral hydroureteronephrosis. Reviewed by: Mitchell Lucero on 08/26/2022 3:03 PM PDT Approved by: Mitchell Lucero on 08/26/2022 3:03 PM PDT Station ID: [id number]
[2022-08-26 15:37] LABS: BILIRUBIN,URINE NEGATIVE (NEGATIVE); GLUCOSE, URINE (UA) 100 mg/dL (NEGATIVE); KETONES,URINE (UA) NEGATIVE (NEGATIVE); LEUKOCYTE ESTERASE, URINE TRACE (NEGATIVE); NITRITE,URINE NEGATIVE (NEGATIVE); OCCULT BLOOD,URINE LARGE (NEGATIVE); PH,URINE 6.5 PH (5.0-7.5); PROTEIN,URINE TRACE mg/dL (NEGATIVE); UROBILINOGEN,URINE 0.2 (NORMAL) E.U./dL (NORMAL)
[2022-08-26 15:39] LABS: CLARITY,URINE HAZY (CLEAR)
[2022-08-26 15:46] LABS: BACTERIA,URINE Rare /HPF (None Seen); RBC,URINE TNTC /HPF (0-5); SQUAMOUS EPITHELIAL CELL,UR NONE SEEN (<= Few)
[2022-08-26 19:01] LABS: BASOPHILS # (AUTO) 0.1 10^3/uL (0.0-0.1); BASOPHILS % (AUTO) 0.6 %; EOSINOPHILS # (AUTO) 0.1 10^3/uL (0.0-0.7); EOSINOPHILS % (AUTO) 1.1 %; HCT - HEMATOCRIT 31.5 % (42.0-52.0); HGB - HEMOGLOBIN 10.2 g/dL (14.0-18.0); LYMPHOCYTES # (AUTO) 1.7 10^3/uL (1.5-3.5); LYMPHOCYTES % (AUTO) 15.2 %; MEAN CORPUSCULAR HEMOGLOBIN 28.1 pg (27.0-31.0); MEAN CORPUSCULAR HGB CONC 32.4 g/dL (32.0-36.0); MEAN CORPUSCULAR VOLUME 86.8 fL (80.0-94.0); MEAN PLATELET VOLUME 8.9 fL (7.4-11.4); MONOCYTES # (AUTO) 0.4 10^3/uL (0.0-1.0); MONOCYTES % (AUTO) 3.8 %; NEUTROPHILS # (AUTO) 8.6 10^3/uL (1.5-6.6); PLT - PLATELET COUNT 427 10^3/uL (130-450); RED BLOOD COUNT 3.63 10^6/uL (4.70-6.10); RED CELL DISTRIBUTION WIDTH 14.2 % (12.0-15.0); WHITE BLOOD COUNT 10.9 x10^3/uL (4.8-10.8)
[2022-08-26 19:20] LABS: ALBUMIN 2.7 g/dL (3.2-5.5); ALBUMIN/GLOBULIN RATIO 0.4 (1.0-2.2); ALKALINE PHOSPHATASE 149 IU/L (42-121); ALT ALANINE AMINOTRANSFERASE 10 IU/L (10-60); AST ASPARTATE AMINOTRANSFERASE < 10 IU/L (10-42); BILIRUBIN,TOTAL 0.5 mg/dL (0.2-1.0); BUN - BLOOD UREA NITROGEN 77 mg/dL (6-20); CALCIUM 8.8 mg/dL (8.5-10.3); CARBON DIOXIDE - CO2 19 mmol/L (21-32); CHLORIDE 108 mmol/L (101-111); GFR - MDRD 5 (>89); GLUCOSE 114 mg/dL (70-100); LIPASE 30 U/L (22-51); POTASSIUM 4.1 mmol/L (3.5-5.0); SODIUM 142 mmol/L (135-145); TOTAL PROTEIN 9.4 g/dL (6.7-8.2)
[2022-08-26 19:22] LABS: CREATININE 10.9 mg/dL (0.6-1.2)
[2022-08-27] MEDS: SODIUM CHLORIDE 0.9% 1,000 ML IV SCH ×2 (02:04→08:47)
--- NOTE | 2022-08-27 07:52 | ED Physician Documentation ---
ED Addendum - Addendum Addendum: 08/27/22 07:50 The patient awake alert conversant this morning. He was slightly confused and I could not remember having blood drawn this morning. Phlebotomy says the patient refused this morning. I asked if it was okay that we did that and he said sure of course. I think that in maybe ask him to hard. At this point he states he is okay getting blood redrawn and wants to know if his kidney functions getting better. He is getting IV fluids. The Courtney is draining well. He appears well. He is happy that his bladder is not so full. We will recheck labs this morning.
[2022-08-27 08:17] LABS: BASOPHILS # (AUTO) 0.1 10^3/uL (0.0-0.1); BASOPHILS % (AUTO) 0.6 %; EOSINOPHILS # (AUTO) 0.1 10^3/uL (0.0-0.7); EOSINOPHILS % (AUTO) 1.4 %; HCT - HEMATOCRIT 33.4 % (42.0-52.0); HGB - HEMOGLOBIN 10.4 g/dL (14.0-18.0); LYMPHOCYTES # (AUTO) 1.2 10^3/uL (1.5-3.5); LYMPHOCYTES % (AUTO) 11.9 %; MEAN CORPUSCULAR HGB CONC 31.1 g/dL (32.0-36.0); MEAN CORPUSCULAR VOLUME 89.8 fL (80.0-94.0); MEAN PLATELET VOLUME 9.1 fL (7.4-11.4); MONOCYTES # (AUTO) 0.4 10^3/uL (0.0-1.0); MONOCYTES % (AUTO) 4.1 %; NEUTROPHILS # (AUTO) 8.5 10^3/uL (1.5-6.6); NEUTROPHILS % (AUTO) 81.7 %; PLT - PLATELET COUNT 399 10^3/uL (130-450); RED BLOOD COUNT 3.72 10^6/uL (4.70-6.10); RED CELL DISTRIBUTION WIDTH 14.5 % (12.0-15.0); WHITE BLOOD COUNT 10.3 x10^3/uL (4.8-10.8)
[2022-08-27 09:29] LABS: ALBUMIN 2.5 g/dL (3.2-5.5); ALBUMIN/GLOBULIN RATIO 0.4 (1.0-2.2); BILIRUBIN,TOTAL 0.3 mg/dL (0.2-1.0); CALCIUM 8.4 mg/dL (8.5-10.3); CREATININE 5.4 mg/dL (0.6-1.2); POTASSIUM 3.3 mmol/L (3.5-5.0); TOTAL PROTEIN 8.6 g/dL (6.7-8.2)
[2022-08-27] MEDS ORDERED: POTASSIUM BICARB 25 MEQ TABLET PO STA (09:33)
[2022-08-27] MEDS ORDERED: LACTATED RINGERS 1,000 ML IV STA (13:17)
[2022-08-27 13:37] LABS: CREATININE 4.5 mg/dL (0.6-1.2); POTASSIUM 3.9 mmol/L (3.5-5.0)
[2022-08-27 13:38] LABS: CALCIUM 8.4 mg/dL (8.5-10.3); MAGNESIUM 1.9 mg/dL (1.7-2.8)
[2022-08-27] MEDS ORDERED: ACETAMINOPHEN 325 MG TABLET PO PRN (16:09)
[2022-08-27] MEDS ORDERED: SODIUM CHLORIDE FLUSH 0.9% 10 ML SYRINGE IVP PRN (16:09)
[2022-08-27] MEDS ORDERED: ONDANSETRON 4 MG/2 ML VIAL IVP PRN (16:09)
[2022-08-27] MEDS ORDERED: SODIUM CHLORIDE 0.9% 1,000 ML IV SCH ×2 (17:00→19:48)
[2022-08-27] MEDS: SODIUM CHLORIDE FLUSH 0.9% 10 ML SYRINGE IVP SCH (17:35)
--- NOTE | 2022-08-27 18:51 | HISTORY & PHYSICAL EXAMINATION ---
Chief Complaint - Chief Complaint Chief Complaint: Acute kidney injury History of Present Illness - Admitted From Admitted From:: ED - History Obtained From Records Reviewed: ED note History obtained from: Patient, patient's friend, ED note - History of Present Illness HPI Comment/Other: This is a 51-year-old male who was admitted to the ED for an acute kidney injury and urinary retention on 08/26. He appears anxious as I interview him. His roommate, Fang, is present and helping provide history. Pt and his roommate had noticed his abdomen was distended 2 nights ago. He visited a local walk-in clinic on 08/26 morning with a complaint of lower abdominal mass, and was advised to go to ED when his labs revealed acute kidney injury. His lab results revealed a BUN of 88 and a creatinine of 12. In the ED, he denied urinary symptoms, taking any medications, NSAIDs or alcohol use. CT imaging revealed a severely distended bladder with more than 2500 mL of urine. A conde catheter was placed, and drained 3100 mL immediately. Pt stayed overnight in ED, and his creatinine decreased to 10.9. He was admitted to med-surg for observation. He reports no pain at this time. He is a type 2 diabetic that is non-compliant with his insulin. Fang shares th at it is because he does not like needles. He was diagnosed a couple years ago. Fang brought his insulin lispro, and states he was prescribed 25 units twice daily. He does not check his blood glucose regularly. He was previously admitted in April 2022 for DKA. His labs showed normal renal function. His A1c was 16.8%. He has not established care with a PCP, but states he found a provider he is going to visit after discharge. Pt denies any other conditions or medications. Pt has lost more than 50 lbs over a period of months. His appetite began to decrease in the past couple weeks. Fang states he used to eat most of a pizza, and now he can only take a few bites and feels full. He gags after eating, but does not vomit. He also feels excessively thirsty, and drinks water constantly. He smokes half a pack of cigarettes a day, and uses meth daily. He is an occasional alcohol drinker, stating he's had 2 beers over the last week. He is not sexually active. He is unemployed, and states Fang helps him financially. History - Past Medical History Cardiovascular: reports: None Respiratory: reports: None Neuro: reports: None Endocrine/Autoimmune: reports: None, Type 2 diabetes, Other GI: reports: None : reports: None HEENT: reports: None Psych: reports: None Musculoskeletal: reports: None Derm: reports: None MRSA Hx?: No - Past Surgical History Other past surgical history: None - Family & Social History Family History Comment/Other: non-contributory. Pt states he does not know his family well. Living arrangement: At home Living Situation: With friend(s) Social History Notes: Pt states he does not work, and is not on disability. His roomate supports him financially. - Substance History Use: Uses substance without health or social issues: Tobacco, Alcohol, Amphetamine (Meth), Cannabis Meds/Allgy - Home Medications Home Medications: Ambulatory Orders Medication Instructions Recorded Confirmed Blood-Glucose Meter [Glucometer] 1 each [facility] #1 each 05/10/22 08/26/22 Insulin Lispro [Humalog Kwikpen 2 - 10 unit SUBQ 05/10/22 08/28/22 U-100] 0800,1200,1700,2100 #1 ea Lancets/Blood Glucose Strips [Pogo 1 each [facility] #120 ea 05/10/22 08/28/22 Automatic Test Cartridge] Insulin Glargine [Lantus Solostar] 25 unit SUBQ BID 08/28/22 08/28/22 - Allergies Allergies/Adverse Reactions: Allergies Allergy/AdvReac Type Severity Reaction Status Date / Time No Known Drug Allergies Allergy Verified 05/09/22 09:44 Review of Systems - Constitutional Constitutional: reports: Fatigue, Chills, Poor appetite, Weight loss. denies: Fever - Ears, Nose & Throat Ears, Nose & Throat: denies: Ear pain, Nasal discharge, Sore throat - Cardiovascular Cariovascular: reports: Lightheadedness. denies: Palpitations, Chest pain - Respiratory Respiratory: denies: Cough, SOB at rest, SOB with exertion - Gastrointestinal Gastrointestinal: reports: Reflux/heartburn, Poor appetite, Other (Early satiety). denies: Abdominal pain, Constipation, Diarrhea, Nausea, Vomiting - Genitourinary Genitourinary: reports: Frequency, Hematuria. denies: Dysuria, Urgency, Flank pain, Nocturia - Musculoskeletal Musculoskeletal: denies: Muscle pain - Neurological Neurological: reports: Other (Peripheral neuropathy). denies: General weakness, Headache - Endocrine Endocrine: reports: Polydypsia Prior Level of Functionality: Pt was able to ambulte freely w/o assistance. He went on daily walks. Exam - Vital Signs Vital Signs: Vital Signs x48h Temp Pulse Pulse Resp BP BP Pulse Ox 08/27/22 17:00 36.3 C L 97 16 153/92 H 99 08/27/22 13:19 104 H 16 151/102 H 100 08/27/22 11:07 105 H 20 130/90 H 100 08/27/22 11:05 106 H 14 130/90 H 100 - Physical Exam General Appearance: positive: Alert, Anxious Eyes Bilateral: positive: Normal inspection, EOMI ENT: positive: ENT inspection nml, No signs of dehydration Neck: positive: Nml inspection, No JVD, Trachea midline. negative: Lymphadenopathy (R), Lymphadenopathy (L) Respiratory: positive: Chest non-tender, No respiratory distress, Breath sounds nml. negative: Wheezes, Rales, Rhonchi Cardiovascular: positive: No murmur, No gallop, Tachycardia Peripheral Pulses: positive: 2+ Abdomen: positive: No organomegaly, Nml bowel sounds, No distention, Tenderness (LLQ tenderness to palpation). negative: Guarding, Rebound, Mass Back: positive: Nml inspection Skin: positive: Color nml, Dry Extremities: positive: Non-tender, Full ROM Neurologic/Psychiatric: positive: CN's nml (2-12), Motor nml, Sensation nml Sepsis Event Note (H) - Evaluation Current Stage of Sepsis: Ruled out Conclusion/Plan - Problem List (1) Acute kidney failure Conclusion/Plan: Patient was started on IV fluids in ED. His creatinine has improved, as today it is 4.5. His BUN has improved to 49. He is stable at this time. JILLIAN likely due to dilated bladder and urinary retention. PLAN: Continue IV fluids. Continue to monitor Cr and BUN. Qualifiers: Acute renal failure type: unspecified Qualified Code(s): N17.9 - Acute kidney failure, unspecified (2) Urinary retention Conclusion/Plan: Conde catheter is in place and is emptying bladder. There is noticeable hematuria. CT did not reveal any obvious obstruction in the bladder, ureters, or urethra. He is not on any anticholinergic medications that could impede bladder emptying. His risk for an STD is low. Due to patient's uncontrolled diabetes, it is likely a neuropathy could be stopping the bladder from su and emptying properly. PLAN: Pt will remain on IV fluids. I will consider starting urecholine to help the bladder contract. Pt will need to have follow-up with a urologist upon discharge. (3) Type 2 diabetes mellitus Conclusion/Plan: Patient does not have any diabetic management. He has a Humalog pen, but does not use it due to not liking needles. During his last admission, he was advised to establish a PCP for diabetic management, as his condition is very serious. He saw one provider, one time since his April discharge. He has not established care yet. Today we discussed how his uncontrolled diabetes is causing peripheral neuropathy,and possibly gastroparesis and urinary retention. PLAN: Start daily fingerstick checks. Start diabetic diet. Order A1c. Start sliding scale insulin regimen. Qualifiers: Diabetes mellitus intermediate insulin use: without intermediate use Diabetes mellitus complication status: with neurologic complications Diabetes mellitus complication detail: with polyneuropathy Qualified Code(s): E11.42 - Type 2 diabetes mellitus with diabetic polyneuropathy (4) Weight loss Conclusion/Plan: Per patient, he went from 200+ lbs to 143 lbs in months. He has new onset early satiety and poor appetite approximately 2-3 weeks ago. He is only able to take a few bites of his food. Based on his history of uncontrolled diabetes, this raises suspicion for diabetic gastroparesis. His meth abuse could also be a precipitating factor for weight loss. PLAN: Start Reglan 5 mg PO [facility] for gastroparesis. Will assess meal intake tomorrow. (5) Methamphetamine abuse Conclusion/Plan: Patient appears anxious and speaks very quickly. At first hesitant, patient eventually admits to daily meth use when prompted by his roommate. He has never been to rehab or a substance abuse clinic. Pt states he has experienced withdrawal before, in the form of excessive sleepiness. PLAN: Pt will likely begin to experience withdrawal symptoms tomorrow. He will be allowed to rest. For tonight, pt will be given Ambien 5 mg PO to help sleep. Start 14 mg nicotine patch qd. - Lab Results Fish Bones: 08/28/22 04:38 08/28/22 04:38
[2022-08-27] MEDS ORDERED: ZOLPIDEM 5 MG TABLET PO PRN (20:44)
[2022-08-27] MEDS ORDERED: INSULIN GLARGINE-YFGN 300 UNIT/3 ML PEN SUBQ SCH (21:00)
[2022-08-27] MEDS: NICOTINE 14 MG PATCH TOP SCH (21:32)
[2022-08-27] MEDS: METOCLOPRAMIDE 10 MG TABLET PO SCH (21:35)
[2022-08-27] MEDS: INSULIN LISPRO 300 UNIT/3 ML PEN SUBQ SCH (21:36)
[2022-08-27] MEDS: INSULIN GLARGINE-YFGN 300 UNIT/3 ML PEN SUBQ SCH (21:36)
[2022-08-28 04:58] LABS: BASOPHILS # (AUTO) 0.1 10^3/uL (0.0-0.1); BASOPHILS % (AUTO) 0.6 %; EOSINOPHILS # (AUTO) 0.2 10^3/uL (0.0-0.7); EOSINOPHILS % (AUTO) 2.5 %; HCT - HEMATOCRIT 30.9 % (42.0-52.0); HGB - HEMOGLOBIN 9.6 g/dL (14.0-18.0); LYMPHOCYTES # (AUTO) 2.3 10^3/uL (1.5-3.5); MEAN CORPUSCULAR HEMOGLOBIN 27.8 pg (27.0-31.0); MEAN CORPUSCULAR HGB CONC 31.1 g/dL (32.0-36.0); MEAN CORPUSCULAR VOLUME 89.6 fL (80.0-94.0); MEAN PLATELET VOLUME 8.8 fL (7.4-11.4); MONOCYTES # (AUTO) 0.4 10^3/uL (0.0-1.0); NEUTROPHILS # (AUTO) 6.1 10^3/uL (1.5-6.6); NEUTROPHILS % (AUTO) 67.6 %; PLT - PLATELET COUNT 401 10^3/uL (130-450); RED BLOOD COUNT 3.45 10^6/uL (4.70-6.10); RED CELL DISTRIBUTION WIDTH 14.4 % (12.0-15.0)
[2022-08-28 05:09] LABS: CALCIUM 8.1 mg/dL (8.5-10.3); CREATININE 2.4 mg/dL (0.6-1.2); POTASSIUM 3.4 mmol/L (3.5-5.0)
[2022-08-28] MEDS: METOCLOPRAMIDE 10 MG TABLET PO SCH ×4 (06:26→20:45)
[2022-08-28] MEDS: SODIUM CHLORIDE FLUSH 0.9% 10 ML SYRINGE IVP SCH ×3 (06:28→16:43)
--- NOTE | 2022-08-28 08:04 | PROVIDER PROGRESS NOTE ---
Subjective - Prog Note Date Prog Note Date: 08/28/22 Prog Note Time: 10:59 - Subjective Pt reports feeling: Improved Subjective: Upon entering patient's room, he is propped up in bed to eat breakfast. His head is swaying back and forth as he is very sleepy. He wakes up to his name being called, and begins to eat again. He states he sleeps in the mornings, and did not sleep much last night. He feels better than yesterday. He ate 100% of his meal, which he thanks his medication for his appetite. He reports no pain. Current Medications - Current Medications Current Medications: Active Medications Acetaminophen (Acetaminophen 325 Mg Tablet) 650 mg PO Q4HR PRN PRN Reason: Pain 1 to 4, or Fever Sodium Chloride (Normal Saline 0.9%) 1,000 mls @ 125 mls/hr IV .Q8H [facility] Insulin Glargine-yfgn (Insulin Glargine-Yfgn 300 Unit/3 Ml Pen) 5 unit SUBQ QPM [facility] Last Admin: 08/27/22 21:36 Dose: 5 unit Insulin Human Lispro (Insulin Lispro 300 Unit/3 Ml Pen) 1 - 5 unit SUBQ 0800,1200,1700,2100 [facility]; Protocol Last Admin: 08/27/22 21:36 Dose: Not Given Metoclopramide HCl (Metoclopramide 10 Mg Tablet) 5 mg PO ACHS [facility] Last Admin: 08/28/22 06:26 Dose: 5 mg Nicotine (Nicotine 14 Mg Patch) 1 patch TOP DAILY [facility] Last Admin: 08/27/22 21:32 Dose: 1 patch Ondansetron HCl (Ondansetron 4 Mg/2 Ml Vial) 4 mg IVP Q6HR PRN PRN Reason: Nausea / Vomiting Sodium Chloride (Sodium Chloride Flush 0.9% 10 Ml Syringe) 10 ml IVP PRN PRN PRN Reason: NEEDED PER PROVIDER ORDERS Sodium Chloride (Sodium Chloride Flush 0.9% 10 Ml Syringe) 10 ml IVP 0100,0900,1700 [facility] Last Admin: 08/28/22 06:28 Dose: Not Given Zolpidem Tartrate (Zolpidem 5 Mg Tablet) 5 mg PO QPM PRN PRN Reason: Insomnia Objective - Vital Signs/Intake & Output Vital Signs: Vital Signs x48h Temp Pulse Resp BP Pulse Ox 08/28/22 04:45 36.8 C 107 H 18 133/84 H 98 Intake & Output: Intake & Output 08/25/22 08/26/22 08/27/22 08/28/22 23:59 23:59 23:59 23:59 Intake Total 1000 3823.33 4360 Output Total 5400 5625 3175 Balance -4400 -1801.67 1185 - Objective General Appearance: positive: No acute distress, Lethargic (Pt arouses and becomes alert when his name is called.) Eyes Bilateral: positive: Normal inspection, EOMI ENT: positive: ENT inspection nml Neck: positive: Nml inspection, No JVD, Trachea midline. negative: Lymphadenopathy (R), Lymphadenopathy (L) Respiratory: positive: Chest non-tender, No respiratory distress, Breath sounds nml. negative: Wheezes, Rales, Rhonchi Cardiovascular: positive: No murmur, No gallop, Tachycardia Peripheral Pulses: 2+ Radial (R), 2+ Radial (L), 2+ Dorsalis pedis (R), 2+ Dorsalis pedis (L) Abdomen: positive: No organomegaly, Nml bowel sounds, No distention, Tenderness (LLQ and R flank pain on palpation) Back: positive: Nml inspection, CVA tenderness (R) Skin: positive: Color nml, No rash, Warm, Dry Extremities: positive: Non-tender, Full ROM, No pedal edema Neurologic/Psychiatric: positive: Oriented x3, CN's nml (2-12), Motor nml, Sensation nml, Mood/affect nml - Lab Results Fish Bones: 08/28/22 04:38 08/28/22 04:38 Other Labs: Lab Results x24hrs 08/28/22 08/28/22 08/28/22 Range/Units 07:57 04:38 04:38 WBC 9.0 (4.8-10.8) x10^3/uL RBC 3.45 L (4.70-6.10) 10^6/uL Hgb 9.6 L (14.0-18.0) g/dL Hct 30.9 L (42.0-52.0) % MCV 89.6 (80.0-94.0) fL MCH 27.8 (27.0-31.0) pg MCHC 31.1 L (32.0-36.0) g/dL RDW 14.4 (12.0-15.0) % Plt Count 401 (130-450) 10^3/uL MPV 8.8 (7.4-11.4) fL Neut # (Auto) 6.1 (1.5-6.6) 10^3/uL Lymph # (Auto) 2.3 (1.5-3.5) 10^3/uL [place] # (Auto) 0.4 (0.0-1.0) 10^3/uL Eos # (Auto) 0.2 (0.0-0.7) 10^3/uL Baso # (Auto) 0.1 (0.0-0.1) 10^3/uL Absolute Nucleated RBC 0.00 x10^3/uL Nucleated RBC % 0.0 /100WBC Sodium 141 (135-145) mmol/L Potassium 3.4 L (3.5-5.0) mmol/L Chloride 107 (101-111) mmol/L Carbon Dioxide 25 (21-32) mmol/L Anion Gap 9.0 (6-13) BUN 30 H (6-20) mg/dL Creatinine 2.4 H (0.6-1.2) mg/dL Estimated GFR (MDRD) 29 L (>89) Glucose 149 H (70-100) mg/dL POC Whole Bld Glucose 112 H (70 - 100) mg/dL Calcium 8.1 L (8.5-10.3) mg/dL Magnesium (1.7-2.8) mg/dL Total Bilirubin (0.2-1.0) mg/dL AST (10-42) IU/L ALT (10-60) IU/L Alkaline Phosphatase (42-121) IU/L Total Protein (6.7-8.2) g/dL Albumin (3.2-5.5) g/dL Globulin (2.1-4.2) g/dL Albumin/Globulin Ratio (1.0-2.2) Lipase (22-51) U/L 08/27/22 08/27/22 08/27/22 Range/Units 20:53 13:24 09:00 WBC (4.8-10.8) x10^3/uL RBC (4.70-6.10) 10^6/uL Hgb (14.0-18.0) g/dL Hct (42.0-52.0) % MCV (80.0-94.0) fL MCH (27.0-31.0) pg MCHC (32.0-36.0) g/dL RDW (12.0-15.0) % Plt Count (130-450) 10^3/uL MPV (7.4-11.4) fL Neut # (Auto) (1.5-6.6) 10^3/uL Lymph # (Auto) (1.5-3.5) 10^3/uL [place] # (Auto) (0.0-1.0) 10^3/uL Eos # (Auto) (0.0-0.7) 10^3/uL Baso # (Auto) (0.0-0.1) 10^3/uL Absolute Nucleated RBC x10^3/uL Nucleated RBC % /100WBC Sodium 144 144 (135-145) mmol/L Potassium 3.9 3.3 L (3.5-5.0) mmol/L Chloride 112 H 113 H (101-111) mmol/L Carbon Dioxide 23 20 L (21-32) mmol/L Anion Gap 9.0 11.0 (6-13) BUN 49 H 57 H (6-20) mg/dL Creatinine 4.5 H 5.4 H (0.6-1.2) mg/dL Estimated GFR (MDRD) 14 L 11 L (>89) Glucose 98 211 H (70-100) mg/dL POC Whole Bld Glucose 135 H (70 - 100) mg/dL Calcium 8.4 L 8.4 L (8.5-10.3) mg/dL Magnesium 1.9 2.0 (1.7-2.8) mg/dL Total Bilirubin 0.3 (0.2-1.0) mg/dL AST 11 (10-42) IU/L ALT 10 (10-60) IU/L Alkaline Phosphatase 134 H (42-121) IU/L Total Protein 8.6 H (6.7-8.2) g/dL Albumin 2.5 L (3.2-5.5) g/dL Globulin 6.1 H (2.1-4.2) g/dL Albumin/Globulin Ratio 0.4 L (1.0-2.2) Lipase 33 (22-51) U/L / Range/Units 08:02 WBC 10.3 (4.8-10.8) x10^3/uL RBC 3.72 L (4.70-6.10) 10^6/uL Hgb 10.4 L (14.0-18.0) g/dL Hct 33.4 L (42.0-52.0) % MCV 89.8 (80.0-94.0) fL MCH 28.0 (27.0-31.0) pg MCHC 31.1 L (32.0-36.0) g/dL RDW 14.5 (12.0-15.0) % Plt Count 399 (130-450) 10^3/uL MPV 9.1 (7.4-11.4) fL Neut # (Auto) 8.5 H (1.5-6.6) 10^3/uL Lymph # (Auto) 1.2 L (1.5-3.5) 10^3/uL [place] # (Auto) 0.4 (0.0-1.0) 10^3/uL Eos # (Auto) 0.1 (0.0-0.7) 10^3/uL Baso # (Auto) 0.1 (0.0-0.1) 10^3/uL Absolute Nucleated RBC 0.00 x10^3/uL Nucleated RBC % 0.0 /100WBC Sodium (135-145) mmol/L Potassium (3.5-5.0) mmol/L Chloride (101-111) mmol/L Carbon Dioxide (21-32) mmol/L Anion Gap (6-13) BUN (6-20) mg/dL Creatinine (0.6-1.2) mg/dL Estimated GFR (MDRD) (>89) Glucose (70-100) mg/dL POC Whole Bld Glucose (70 - 100) mg/dL Calcium (8.5-10.3) mg/dL Magnesium (1.7-2.8) mg/dL Total Bilirubin (0.2-1.0) mg/dL AST (10-42) IU/L ALT (10-60) IU/L Alkaline Phosphatase (42-121) IU/L Total Protein (6.7-8.2) g/dL Albumin (3.2-5.5) g/dL Globulin (2.1-4.2) g/dL Albumin/Globulin Ratio (1.0-2.2) Lipase (22-51) U/L ABX Reporting Has patient been on IV antibiotics over the past 48 hours?: No Sepsis Event Note (H) - Evaluation Current Stage of Sepsis: Ruled out Assessment/Plan - Problem List (1) Acute kidney failure Impression: His BUN decreased from 49 to 30 this morning. His Cr went from 4.5 to 2.4. He continues to improve. Today his potassium has slightly decreased to 3.4. He has right sided CVA tenderness on exam. This is likely due to hydronephrosis. His urine cultures did not have any growth, making pyelonephritis less likely. PLAN: IV fluid rates have been decreased from 125 to 40. Give KCl 20 meq PO once to replenish K. Continue to monitor Cr, BUN, and K. Qualifiers: Acute renal failure type: unspecified Qualified Code(s): N17.9 - Acute kidney failure, unspecified (2) Urinary retention Impression: Pt had a total output of 3175 mL overnight. His urine this morning no longer s hows lovely hematuria. It is of a pale yellow color. He denies any pain with his catheter. I am still suspecting this is due to a neurogenic bladder secondary to DM. Pt is still having tenderness on LLQ. PLAN: Continue decompression with catheter. Pt will remain on IV fluids. He will need to have follow-up with a urologist upon discharge. If his LLQ pain persists tomorrow, a repeat CT will be ordered. (3) Type 2 diabetes mellitus Impression: His glucose at 7:57a was 112. Pt reports tolerating insulin well, denies any GI symptoms. He denies peripheral neuropathy at this time. PLAN: Continue daily fingerstick checks. Continue diabetic diet. Order A1c. Continue sliding scale insulin. Qualifiers: Diabetes mellitus group home insulin use: without radiology scheduler use Diabetes mellitus complication status: with neurologic complications Diabetes mellitus complication detail: with polyneuropathy Qualified Code(s): E11.42 - Type 2 diabetes mellitus with diabetic polyneuropathy (4) Weight loss Impression: Pt was administered reglan 5 mg PO last night and this morning. He ate 100% of his breakfast. Nursing reported that he ate a sandwich, applesauce, jello, and chicken broth last night after complaint of hunger after 11 pm. Patient also complained that staff do not provide food, which is not true. He appears to not have any problems eating. There is no regurgitation or n/v. There are normal bowel sounds. PLAN: Continue reglan 5 mg PO ACHS. Continue to monitor food intake. (5) Tachycardia Impression: On admission, his HR's were in the 100s. Today his HR is 116. I suspect his tachycardia could be due to his meth abuse. PLAN: Monitor HR Consider diltiazem if HR does not decrease throughout the day. (6) Methamphetamine abuse Impression: Pt appears very sleepy and tired before and after his breakfast. He reports he did not sleep much last night because he tends to sleep in the morning. Nursing reports he was asleep throughout the night. PLAN: Pt will rest as he begins to experience withdrawal. Discontinue Ambien, as he will likely not need it tonight. Continue 14 mg nicotine patch qd.
[2022-08-28] MEDS: NICOTINE 14 MG PATCH TOP SCH (08:17)
[2022-08-28] MEDS: INSULIN LISPRO 300 UNIT/3 ML PEN SUBQ SCH ×4 (08:19→20:51)
[2022-08-28] MEDS ORDERED: POTASSIUM CHLORIDE 10 MEQ CAPSULE PO ONE (11:24)
[2022-08-28 12:05] LABS: ESTIMATED AVERAGE GLUCOSE 189 mg/dL (70-100); HEMOGLOBIN A1c% 8.2 % (4.27-6.07)
[2022-08-28] MEDS: SODIUM CHLORIDE 0.9% 1,000 ML IV SCH (12:29)
--- NOTE | 2022-08-28 12:37 | PHARMACY PROGRESS NOTE ---
- Best Possible Medication History Admit Date and Time: 08/27/22 1609 Processed by: Pharmacy Medication History completed: Yes Patient Interview: Completed Secondary Source(s): Insurance records As the person ultimately responsible for medication therapy, providers are able to order a medication from an existing home medication list in [facility] via the "Reconcile Routine" prior to Confirmation of that medication by application support consultant. Such practice is discouraged except when the physician, in their clinical judgment, deems that a medical need exists for a medication without regard to previous use.
[2022-08-28] MEDS: MULTIVITAMIN W/MINERALS TABLET PO SCH (16:42)
[2022-08-28] MEDS: INSULIN GLARGINE-YFGN 300 UNIT/3 ML PEN SUBQ SCH (20:41)
[2022-08-29] MEDS: SODIUM CHLORIDE FLUSH 0.9% 10 ML SYRINGE IVP SCH ×2 (00:30→08:41)
[2022-08-29 05:51] LABS: BASOPHILS # (AUTO) 0.1 10^3/uL (0.0-0.1); BASOPHILS % (AUTO) 0.8 %; EOSINOPHILS # (AUTO) 0.4 10^3/uL (0.0-0.7); EOSINOPHILS % (AUTO) 3.5 %; HCT - HEMATOCRIT 30.7 % (42.0-52.0); HGB - HEMOGLOBIN 9.8 g/dL (14.0-18.0); LYMPHOCYTES % (AUTO) 27.6 %; MEAN CORPUSCULAR HEMOGLOBIN 28.1 pg (27.0-31.0); MEAN CORPUSCULAR HGB CONC 31.9 g/dL (32.0-36.0); MEAN PLATELET VOLUME 8.9 fL (7.4-11.4); MONOCYTES # (AUTO) 0.5 10^3/uL (0.0-1.0); MONOCYTES % (AUTO) 4.7 %; NEUTROPHILS # (AUTO) 6.8 10^3/uL (1.5-6.6); NEUTROPHILS % (AUTO) 63.1 %; PLT - PLATELET COUNT 406 10^3/uL (130-450); RED BLOOD COUNT 3.49 10^6/uL (4.70-6.10); RED CELL DISTRIBUTION WIDTH 14.4 % (12.0-15.0); WHITE BLOOD COUNT 10.8 x10^3/uL (4.8-10.8)
[2022-08-29 06:07] LABS: CREATININE 1.6 mg/dL (0.6-1.2); MAGNESIUM 1.6 mg/dL (1.7-2.8); PHOSPHORUS 2.6 mg/dL (2.5-4.6); POTASSIUM 3.2 mmol/L (3.5-5.0)
[2022-08-29] MEDS: METOCLOPRAMIDE 10 MG TABLET PO SCH ×2 (06:27→10:57)
[2022-08-29] MEDS: SODIUM CHLORIDE 0.9% 1,000 ML IV SCH (06:31)
[2022-08-29] MEDS: INSULIN LISPRO 300 UNIT/3 ML PEN SUBQ SCH ×2 (08:33→11:07)
[2022-08-29] MEDS: MULTIVITAMIN W/MINERALS TABLET PO SCH (08:40)
[2022-08-29] MEDS: NICOTINE 14 MG PATCH TOP SCH (08:40)
[2022-08-29] MEDS ORDERED: POTASSIUM CHLORIDE 10 MEQ CAPSULE PO ONE (10:55)
[2022-08-29] MEDS ORDERED: MAGNESIUM OXIDE 400 MG TABLET PO SCH (11:00)
--- NOTE | 2022-08-29 11:51 | Discharge Plan ---
Discharge Plan Problem Reviewed?: Yes Disposition: Home Health Service Condition: Stable Prescriptions: glipiZIDE ER [Glucotrol Xl] 2.5 mg PO DAILY #30 tab Magnesium Oxide [Mag Ox] 400 mg PO DAILY #30 tab Potassium Chloride [Micro-K] 10 meq PO UD #15 cap Metoclopramide [Reglan] 5 mg PO ACHS #100 tab Diet: Diabetic Activity Restrictions: Activity as Tolerated Shower Restrictions: No Instruction Topics: Diabetes Detention Complications, Diabetes Kidney Disease, Catheter Bag Urinary Empty Clean, Leg Bag Care [facility] Concerns: You were hospitalized to manage very abnormal kidney blood level and we found the cause to be that you have a very enlarged and over distended urinary bladder. This was probably from having diabetic neuropathy complications of your bladder, like to your feet, caused by not having good diabetic glucose control. While you were here, we started you on a pill to manage the diabetes, since you for some reason are not using the Insulin that was prescribed. You were also started on a medicine called Reglan which will help the stomach so that you do not feel so full and can eat more and get nutrition. It appears you also have diabetic gastroparesis which is another type of neuropathy affecting your stomach, which does not let it empty and have normal peristalsis. It is expected that you will have many other neuropathy complications, and a shortened life span, if you do not get serious about controlling your blood sugar. You are being discharged home with new medicines of Glipizide, Reglan, also sup plemental potassium and magnesium. The new prescriptions were electronically sent to your [facility] pharmacy in [place]. You are being sent home with a new Courtney catheter to collect urine in a leg bag, and you have had education about managing the Courtney. A referral to a Home Health agency has been sent, to send a nurse to your house to assure that the Courtney is being managed properly and that you are not using methamphetamine and that you are taking all your medicines as prescribed. We reached out to Jo Nagel NP, your primary care provider, to inform her that she needs to give you a referral [place] to a Urologist, to help deal with your over-distended urinary bladder. The Courtney must remain in place until the Urologist tells you what to do with it. If you pull out the Courtney catheter, your urinary bladder will again enlarge and again cause kidney failure and that could become so severe that you would need to be on kidney dialysis. Please STOP USING METH ! Also, I have told your friend and roommate Fang, that she should not be enabling you to use meth, by providing you with finances to get it. Plan of Treatment: As above. Care Goals: Improvement in symptoms and stabilization are the goals. Assessment: This instruction sheet is being provided to you as a reminder with all the instructions. Additional Instructions or Follow Up instructions: If you have new or worsening symptoms, call the [facility] doctor for advice, or come to the ER. No Smoking: If you smoke, Please STOP! Call for help. Follow-up with: Jo Nagel ARNP [Provider Admit Priv/Credential] -
[2022-08-29 11:58] VITALS: BP 135/84
--- NOTE | 2022-08-29 12:04 | DISCHARGE SUMMARY ---
Discharge Summary Admit Date: 08/27/22 Discharge Date: 08/29/22 Discharging Provider: Dr Hanna Cooper Primary Care Provider: Magalys Mayfield Condition at Discharge: Poor Discharge Disposition: 01 Home, Self Care - HPI History of Present Illness: This is a 51-year-old male who was admitted to the ED for an acute kidney injury and urinary retention on 08/26. He appears anxious as I interview him. His roommate, Fang, is present and helping provide history. Pt and his roommate had noticed his abdomen was distended 2 nights ago. He visited a local walk-in clinic on 08/26 morning with a complaint of lower abdominal mass, and was advised to go to ED when his labs revealed acute kidney injury. His lab results revealed a BUN of 88 and a creatinine of 12. In the ED, he denied urinary symptoms, taking any medications, NSAIDs or alcohol use. CT imaging revealed a severely distended bladder with more than 2500 mL of urine. A conde catheter was placed, and drained 3100 mL immediately. Pt stayed overnight in ED, and his creatinine decreased to 10.9. He was admitted to med-surg for observation. He reports no pain at this time. He is a type 2 diabetic that is non-compliant with his insulin. Fang shares that it is because he does not like needles. He was diagnosed a couple years ago. Fang brought his insulin lispro, and states he was prescribed 25 units twice daily. He does not check his blood glucose regularly. He was previously admitted in April 2022 for DKA. His labs showed normal renal function. His A1c was 16.8%. He has not established care with a PCP, but states he found a provider he is going to visit after discharge. Pt denies any other conditions or medications. Pt has lost more than 50 lbs over a period of months. His appetite began to decrease in the past couple weeks. Fang states he used to eat most of a pizza, and now he can only take a few bites and feels full. He gags after eating, but does not vomit. He also feels excessively thirsty, and drinks water constantly. He smokes half a pack of cigarettes a day, and uses meth daily. He is an occasi onal alcohol drinker, stating he's had 2 beers over the last week. He is not sexually active. He is unemployed, and states Fang helps him financially. - HOSPITAL COURSE Hospital Course: (1) Acute kidney failure This was felt to be from obstruction from a nondraining, distended urinary bladder. A Conde catheter was put in. He was put on IV fluids. We avoided nephrotoxins. His BUN/ creat improved daily. He was discharged home the Conde in place with creatinine 1.6. (2) Urinary retention He had massively distended urinary bladder. A Conde catheter was put in, and 3 L drained in the ED. He had continued good drainage while here. He was discharged with advise to see PCP and be given referral to a Urologist. He was warned that if he removed it, he could again have renal failure from bladder di stention. I planned to have a Home Health RN check on him, but his medical insurance does not cover Home Health. (3) Type 2 diabetes mellitus This is a patient who had DKA April 2022 and never filled the insulin prescriptions that were prescribed 3 years previously. He admitted he was not using insulin now, at presentation. And he was not following a diabetic diet. His A1c came back at 8.2. We had him on a diabetic diet, sliding scale Insulin and I discharged him on new Glipizide. He was warned that having poor glucose control would shorten his life span, since he was at risk for many diabetic complications (4) Weight loss This patient reported he gets full quickly and was eating negligibly, and because of that had lost weight over the last 6 to 12 months. Here he was administered scheduled Reglan, for presumed diabetic gastroparesis. The very next day he was able to eat his entire meal. He was discharged with prescription for Reglan. (6) Methamphetamine abuse The patient presented with manic speech and by the next day was somnolent, going through meth withdrawal. His friend and roommate Fang was advised not to give him financial support which he uses to buy meth (5) Tachycardia On admission, his HR's were in the 100-116. I suspect his tachycardia was from meth use and volume depletion. - ALLERGIES Allergies/Adverse Reactions: Allergies Allergy/AdvReac Type Severity Reaction Status Date / Time No Known Drug Allergies Allergy Verified 05/09/22 09:44 - MEDICATIONS Home Medications: Ambulatory Orders Medication Instructions Recorded Confirmed Blood-Glucose Meter [Glucometer] 1 each ACHS #1 each 05/10/22 08/26/22 Lancets/Blood Glucose Strips [Pogo 1 each ACHS #120 ea 05/10/22 08/28/22 Automatic Test Cartridge] Magnesium Oxide [Mag Ox] 400 mg PO DAILY #30 tab 08/29/22 Metoclopramide [Reglan] 5 mg PO ACHS #100 tab 08/29/22 Potassium Chloride [Micro-K] 10 meq PO UD #15 cap 08/29/22 glipiZIDE ER [Glucotrol Xl] 2.5 mg PO DAILY #30 tab 08/29/22 - PHYSICAL EXAM AT DISCHARGE General Appearance: positive: No acute distress, Alert, Other (Cachectic (BMI 17) and disheveled.) Eyes Bilateral: positive: Normal inspection ENT: positive: No signs of dehydration, Other (Edentulous) Neck: positive: Nml inspection Respiratory: positive: No respiratory distress, Breath sounds nml Cardiovascular: positive: Regular rate & rhythm, No murmur Abdomen: positive: No organomegaly, Nml bowel sounds, No distention Skin: positive: Warm, Dry Extremities: positive: Non-tender, No pedal edema Neurologic/Psychiatric: positive: Oriented x3, Motor nml - LABS Result Diagrams: 08/29/22 05:13 08/29/22 05:13 - DIAGNOSTIC IMAGING Diagnostic Imaging Results: Final report reviewed - SEPSIS Current Stage of Sepsis: Ruled out - FOLLOW UP Follow Up: He has an appointment to establish with a new caregiver in October 2022. He is to see caregiver at the [facility] within the next week. He needs to get referral to see a Urologist. - TIME SPENT Time Spent in Discharge (Minutes): 40
== END 2022-08-29 15:00 | disposition home or self-care (01) ==
LOC: ED 13:11 → MS2 08-27 16:09
PROVIDERS: ADMIT Internal Medicine; ATTEND Internal Medicine
DX: N17.9 Acute kidney failure, unspecified (principal); R33.8 Other retention of urine; E11.42 Type 2 diabetes mellitus with diabetic polyneuropathy; T38.3X6A Underdosing of insulin and oral hypoglycemic [antidiabetic] drugs, initial encounter; Z91.128 Patient's intentional underdosing of medication regimen for other reason; R63.4 Abnormal weight loss; Z68.1 Body mass index [BMI] 19.9 or less, adult; R63.0 Anorexia; F15.13 Other stimulant abuse with withdrawal; F17.210 Nicotine dependence, cigarettes, uncomplicated; N13.30 Unspecified hydronephrosis; R00.0 Tachycardia, unspecified; E11.43 Type 2 diabetes mellitus with diabetic autonomic (poly)neuropathy; K31.84 Gastroparesis; R31.9 Hematuria, unspecified
CPT/HCPCS: 36415; 74176; 80048; 80053; 81001; 83036; 83690; 83735; 84100; 85025; 87086; 96360; 96361; 99284; 99285; A9270; G0378; J1815; J7120; 81003

== ENCOUNTER 2022-09-25 19:45 | Emergency (ER) | payer MEDICAID ==
--- NOTE | 2022-09-25 20:21 | ED Physician Documentation ---
History of Present Illness - Stated complaint Stated Complaint: MALE - Chief complaint Chief Complaint: General - History obtained from History obtained from: Patient (52-year-old gentleman was admitted here with acute kidney injury related to urinary retention about a month ago. He has had a Courtney catheter ever since. Since yesterday he has had blood tinge in the urine and inflammation around the tip of the catheter.) PD PAST MEDICAL HISTORY - Past Medical History Cardiovascular: None Respiratory: None Neuro: None Endocrine/Autoimmune: None, Type 2 diabetes, Other GI: None : None HEENT: None Psych: None Musculoskeletal: None Derm: None - Past Surgical History Past Surgical History: No - Present Medications Home Medications: Ambulatory Orders Medication Instructions Recorded Confirmed Blood-Glucose Meter [Glucometer] 1 each ACHS #1 each 05/10/22 08/26/22 Lancets/Blood Glucose Strips [Pogo 1 each ACHS #120 ea 05/10/22 08/28/22 Automatic Test Cartridge] Magnesium Oxide [Mag Ox] 400 mg PO DAILY #30 tab 08/29/22 Metoclopramide [Reglan] 5 mg PO ACHS #100 tab 08/29/22 Potassium Chloride [Micro-K] 10 meq PO UD #15 cap 08/29/22 glipiZIDE ER [Glucotrol Xl] 2.5 mg PO DAILY #30 tab 08/29/22 Ciprofloxacin HCl [Cipro] 500 mg PO BID #14 tablet 09/25/22 - Allergies Allergies/Adverse Reactions: Allergies Allergy/AdvReac Type Severity Reaction Status Date / Time No Known Drug Allergies Allergy Verified 09/25/22 19:58 - Social History Does the pt smoke?: Yes Smoking Status: Current every day smoker Does the pt drink ETOH?: Yes Does the pt have substance abuse?: Yes Substance Use and Type: Meth - Immunizations Immunizations are current?: Yes PD ED PE NORMAL - Vitals Vital signs reviewed: Yes - General General: Alert and oriented X 3, No acute distress - Abdomen Abdomen: Normal bowel sounds, Soft, Non tender - Male Male : Other (There is some irritation and inflammation around the urethra. There is a catheter in place with very slightly deja colored urine in the bag.) - Neuro Neuro: Alert and oriented X 3, Normal speech Results - Vitals Vitals: Vital Signs - 24 hr 09/25/22 19:52 Temperature 37.2 C Heart Rate 113 H Respiratory 18 Rate Blood Pressure 131/79 H O2 Saturation 100 Oxygen O2 Source Room air - Labs Labs: Laboratory Tests 09/25/22 20:31 Urine Color YELLOW Urine Clarity SL. CLOUDY Urine pH 6.0 Ur Specific Sutter 1.015 Urine Protein 30 H Urine Glucose (UA) NEGATIVE Urine Ketones NEGATIVE Urine Occult Blood SMALL H Urine Nitrite POSITIVE H Urine Bilirubin NEGATIVE Urine Urobilinogen 0.2 (NORMAL) Ur Leukocyte Esterase MODERATE H Urine RBC 0-5 Urine WBC 11-25 H Ur Squamous Epith Cells FEW Squamous Amorphous Sediment Rare Urine Bacteria Few Ur Microscopic Review INDICATED Urine Culture Comments INDICATED PD Medical Decision Making - ED course ED course: 52-year-old gentleman has hematuria which is light and inflammation around [id number] catheter. I considered potentially just removing the catheter and seeing if he can do a voiding trial but looking at the prior H&P and discharge summary and how bad of shape he was in a month ago, I did not think it was appropriate to remove the catheter and discharge him especially in the setting of the fact that he is using methamphetamines ongoing and is quite disheveled so I do not think he would necessarily be reliable to return with early signs of bladder outlet obstruction prior to getting more severe/critical illness again. As such we will check a UA and replace his Courtney. Departure - Departure Disposition: 01 Home, Self Care Clinical Impression: Catheter-associated urinary tract infection Qualifiers: Indwelling urinary catheter type: indwelling urethral catheter Encounter type: initial encounter Qualified Code(s): T83.511A - Infection and inflammatory reaction due to indwelling urethral catheter, initial encounter; N39.0 - Urinary tract infection, site not specified Condition: Good Record reviewed to determine appropriate education?: Yes Instructions: ED UTI Cystitis Male Prescriptions: Ciprofloxacin HCl [Cipro] 500 mg PO BID #14 tablet Comments: Follow-up with urologist as scheduled. Return for new or worsening symptoms. We will culture your urine, the results should be done in 48-72 hours. If an antibiotic change is necessary we will call you. Return if worse in the meantime, especially if you develop increasing flank pain, fevers, or cannot keep down the medication.
[2022-09-25 20:40] LABS: BILIRUBIN,URINE NEGATIVE (NEGATIVE); GLUCOSE, URINE (UA) NEGATIVE (NEGATIVE); KETONES,URINE (UA) NEGATIVE (NEGATIVE); LEUKOCYTE ESTERASE, URINE MODERATE (NEGATIVE); NITRITE,URINE POSITIVE (NEGATIVE); OCCULT BLOOD,URINE SMALL (NEGATIVE); PROTEIN,URINE 30 mg/dL (NEGATIVE); UROBILINOGEN,URINE 0.2 (NORMAL) E.U./dL (NORMAL)
[2022-09-25 20:42] LABS: CLARITY,URINE SL. CLOUDY (CLEAR)
[2022-09-25 20:43] LABS: AMORPHOUS SEDIMENT,UR Rare /LPF; BACTERIA,URINE Few /HPF (None Seen); RBC,URINE 0-5 /HPF (0-5); SQUAMOUS EPITHELIAL CELL,UR FEW Squamous (<= Few)
[2022-09-25] MEDS ORDERED: CIPROFLOXACIN 250 MG TABLET PO STA (20:46)
[2022-09-25 21:15] VITALS: BP 126/81
== END 2022-09-25 21:15 | disposition home or self-care (01) ==
LOC: ED 19:45
DX: T83.511A Infection and inflammatory reaction due to indwelling urethral catheter, initial encounter (principal); N39.0 Urinary tract infection, site not specified; E11.9 Type 2 diabetes mellitus without complications; Z79.4 Long term (current) use of insulin; F17.200 Nicotine dependence, unspecified, uncomplicated
CPT/HCPCS: 51702; 81001; 87077; 87086; 87181; 99283; A9270; 81003

== ENCOUNTER 2022-11-18 08:52 | Outpatient (CLI) | payer MEDICAID ==
[2022-11-18 12:35] LABS: BASOPHILS # (AUTO) 0.1 10^3/uL (0.0-0.1); BASOPHILS % (AUTO) 0.7 %; EOSINOPHILS # (AUTO) 0.4 10^3/uL (0.0-0.7); HCT - HEMATOCRIT 39.9 % (42.0-52.0); HGB - HEMOGLOBIN 13.2 g/dL (14.0-18.0); LYMPHOCYTES # (AUTO) 3.4 10^3/uL (1.5-3.5); LYMPHOCYTES % (AUTO) 29.2 %; MEAN CORPUSCULAR HEMOGLOBIN 29.1 pg (27.0-31.0); MEAN CORPUSCULAR HGB CONC 33.1 g/dL (32.0-36.0); MEAN CORPUSCULAR VOLUME 88.1 fL (80.0-94.0); MEAN PLATELET VOLUME 9.6 fL (7.4-11.4); MONOCYTES # (AUTO) 0.7 10^3/uL (0.0-1.0); MONOCYTES % (AUTO) 5.9 %; NEUTROPHILS # (AUTO) 7.1 10^3/uL (1.5-6.6); NEUTROPHILS % (AUTO) 60.9 %; PLT - PLATELET COUNT 350 10^3/uL (130-450); RED BLOOD COUNT 4.53 10^6/uL (4.70-6.10); RED CELL DISTRIBUTION WIDTH 14.6 % (12.0-15.0); RETICULOCYTE COUNT % (AUTO) 0.88 % (0.5-2.3); WHITE BLOOD COUNT 11.7 x10^3/uL (4.8-10.8)
[2022-11-18 12:52] LABS: % IRON SATURATION 19 % (20-50); ALBUMIN 4.1 g/dL (3.2-5.5); ALBUMIN/GLOBULIN RATIO 1.1 (1.0-2.2); ALKALINE PHOSPHATASE 79 IU/L (42-121); ALT ALANINE AMINOTRANSFERASE 19 IU/L (10-60); AST ASPARTATE AMINOTRANSFERASE 21 IU/L (10-42); BILIRUBIN,TOTAL 0.3 mg/dL (0.2-1.0); BUN - BLOOD UREA NITROGEN 25 mg/dL (6-20); CALCIUM 9.6 mg/dL (8.5-10.3); CARBON DIOXIDE - CO2 26 mmol/L (21-32); CHLORIDE 104 mmol/L (101-111); CHOL/HDL RATIO 2.1 (<5.0); CHOLESTEROL 116 mg/dL; CREATININE 1.9 mg/dL (0.6-1.3); GFR - MDRD 38 (>89); GLUCOSE 110 mg/dL (74-104); HDL CHOLESTEROL 55 mg/dL; IRON 56 ug/dL (50-212); LDL CHOLESTEROL,CALCULATED 46 mg/dL; LDL/HDL RATIO 0.8 (<3.6); MAGNESIUM 1.7 mg/dL (1.7-2.3); SODIUM 136 mmol/L (135-145); TOTAL IRON BINDING CAPACITY 291 ug/dL (250-450); TRANSFERRIN 208 mg/dL (203-362); TRIGLYCERIDES 75 mg/dL (48-352); VLDL CHOLESTEROL 15 mg/dL
[2022-11-18 12:53] LABS: ESTIMATED AVERAGE GLUCOSE 134 mg/dL (70-100); HEMOGLOBIN A1c% 6.3 % (4.27-6.07)
[2022-11-18 13:11] LABS: THYROID STIMULATING HORMONE 0.98 uIU/mL (0.34-5.60)
[2022-11-18 13:18] LABS: FERRITIN 147.1 ng/mL (23.9-336.2)
== END 2022-11-18 08:53 | disposition home or self-care (01) ==
LOC: LAB.N 08:52
PROVIDERS: ATTEND Nurse Practitioner
DX: E11.9 Type 2 diabetes mellitus without complications (principal); Z13.220 Encounter for screening for lipoid disorders; D64.9 Anemia, unspecified; R33.9 Retention of urine, unspecified; Z12.5 Encounter for screening for malignant neoplasm of prostate; R53.83 Other fatigue; E83.42 Hypomagnesemia
CPT/HCPCS: 36415; 80050; 80061; 82607; 82728; 82746; 83036; 83540; 83721; 83735; 84153; 84466; 85045

== ENCOUNTER 2022-11-27 08:00 | Outpatient (CLI) | payer MEDICAID ==
[2022-11-27 10:09] LABS: BILIRUBIN,URINE NEGATIVE (NEGATIVE); GLUCOSE, URINE (UA) NEGATIVE (NEGATIVE); KETONES,URINE (UA) NEGATIVE (NEGATIVE); LEUKOCYTE ESTERASE, URINE LARGE (NEGATIVE); NITRITE,URINE NEGATIVE (NEGATIVE); OCCULT BLOOD,URINE TRACE-INTA (NEGATIVE); PH,URINE 5.5 PH (5.0-7.5); PROTEIN,URINE NEGATIVE (NEGATIVE); UROBILINOGEN,URINE 0.2 (NORMAL) E.U./dL (NORMAL)
[2022-11-27 10:25] LABS: BACTERIA,URINE Few /HPF (None Seen); CLARITY,URINE SL. CLOUDY (CLEAR); SQUAMOUS EPITHELIAL CELL,UR NONE SEEN (<= Few); WBC CLUMPS,URINE PRESENT; WBC,URINE >25 /HPF (0-3)
== END 2022-11-27 23:59 | disposition home or self-care (01) ==
LOC: LAB 08:00
PROVIDERS: ATTEND Urology
DX: R33.9 Retention of urine, unspecified (principal)
CPT/HCPCS: 81001; 87086

== ENCOUNTER 2023-03-26 17:33 | Outpatient (CLI) | payer MEDICAID | END 2023-03-26 17:34 | disposition critical access hospital (66) | LOC: EMS 17:33 | DX: S91.301A Unspecified open wound, right foot, initial encounter (principal); X58.XXXA Exposure to other specified factors, initial encounter; M79.89 Other specified soft tissue disorders; R06.02 Shortness of breath; R53.1 Weakness; R42 Dizziness and giddiness; R53.83 Other fatigue; R68.83 Chills (without fever); R03.1 Nonspecific low blood-pressure reading; R00.0 Tachycardia, unspecified | CPT/HCPCS: A0425; A0429; A0999 ==

== ENCOUNTER 2023-03-26 17:58 | Emergency (ER) | payer MEDICAID ==
[2023-03-26] MEDS ORDERED: PIPERACILLIN/TAZOBACTAM 3.375 GM in SODIUM CHLORIDE 0.9% MINIBAG 100 ML IV STA (18:00)
[2023-03-26] MEDS ORDERED: VANCOMYCIN INJ 2 GM in SODIUM CHLORIDE 0.9% 500 ML IV STA (18:00)
--- NOTE | 2023-03-26 18:02 | ED Physician Documentation ---
History of Present Illness - Stated complaint Stated Complaint: R FOOT WOUND - History obtained from History obtained from: Patient, EMS - Additonal information Additional information: 52-year-old gentleman with poorly controlled diabetes. Denies history of neuropathy. Noticed a painful wound on the right foot today and was found to be hypotensive and tachycardic. PD PAST MEDICAL HISTORY - Past Medical History Cardiovascular: None Respiratory: None Neuro: None Endocrine/Autoimmune: None, Type 2 diabetes, Other GI: None : None HEENT: None Psych: None Musculoskeletal: None Derm: None - Past Surgical History Past Surgical History: No - Present Medications Home Medications: Ambulatory Orders Medication Instructions Recorded Confirmed Blood-Glucose Meter [Glucometer] 1 each ACHS #1 each 05/10/22 03/27/23 Lancets/Blood Glucose Strips [Pogo 1 each ACHS #120 ea 05/10/22 03/27/23 Automatic Test Cartridge] Magnesium Oxide [Mag Ox] 400 mg PO DAILY #30 tab 08/29/22 03/27/23 Metoclopramide [Reglan] 5 mg PO ACHS #100 tab 08/29/22 Potassium Chloride [Micro-K] 10 meq PO UD #15 cap 08/29/22 03/27/23 glipiZIDE ER [Glucotrol Xl] 2.5 mg PO DAILY #30 tab 08/29/22 03/27/23 Ciprofloxacin HCl [Cipro] 500 mg PO BID #14 tablet 09/25/22 - Allergies Allergies/Adverse Reactions: Allergies Allergy/AdvReac Type Severity Reaction Status Date / Time No Known Drug Allergies Allergy Verified 09/25/22 19:58 - Social History Does the pt smoke?: Yes Smoking Status: Current every day smoker Does the pt drink ETOH?: Yes Does the pt have substance abuse?: Yes - Immunizations Immunizations are current?: Yes PD ED PE NORMAL - Vitals Vital signs reviewed: Yes - General General: Alert and oriented X 3, Other (Thin and somewhat disheveled) - Neck Neck: Supple, no meningeal sign, No bony TTP - Cardiac Cardiac: Other (Tachycardic but regular without murmur) - Respiratory Respiratory: No respiratory distress, Clear bilaterally - Abdomen Abdomen: Non tender - Back Back: No CVA TTP, No spinal TTP - Derm Derm: Normal color, Warm and dry - Extremities Extremities: Other (There is a deep ulcer with cat hair and it on the plantar surface of the right foot at the level of the distal fifth MT and dorsally there are necrotic bullae on the foot.) - Neuro Neuro: Alert and oriented X 3, Normal speech Results - Vitals Vitals: Vital Signs - 24 hr 03/26/23 03/26/23 03/26/23 17:59 19:04 19:30 Temperature 37.2 C Heart Rate 113 H 98 94 Respiratory 20 20 17 Rate Blood Pressure 102/84 H 112/80 105/79 O2 Saturation 98 100 03/26/23 03/26/23 03/26/23 20:00 20:30 21:00 Temperature Heart Rate 90 93 100 Respiratory 16 18 18 Rate Blood Pressure 107/78 107/83 H 114/86 H O2 Saturation 100 98 98 03/26/23 03/26/23 03/26/23 21:30 22:00 23:00 Temperature 37.4 C Heart Rate 104 H 104 H 108 H Respiratory 18 20 20 Rate Blood Pressure 127/89 H 126/91 H 108/81 H O2 Saturation 97 98 97 03/27/23 03/27/23 03/27/23 00:00 00:30 01:00 Temperature 37.4 C Heart Rate 113 H 109 H 109 H Respiratory 19 15 13 Rate Blood Pressure 114/80 114/80 120/87 H O2 Saturation 98 98 98 03/27/23 03/27/23 03/27/23 02:00 03:00 04:00 Temperature 37.1 C Heart Rate 109 H 105 H 100 Respiratory 19 15 16 Rate Blood Pressure 105/81 H 92/70 99/78 O2 Saturation 95 99 100 03/27/23 03/27/23 03/27/23 05:00 07:15 08:09 Temperature Heart Rate 98 99 88 Respiratory 16 13 12 Rate Blood Pressure 99/57 L 93/73 O2 Saturation 98 99 100 Oxygen O2 Source Room air - EKG (time done) 1926 EKG releavant findings:: EKG personally interpreted by author of this note. Relevant findings are: Rate: Rate (enter#) (93) Rhythm: NSR Meridian: Normal Intervals: Normal CO, RBBB Ischemia: Normal ST segments Computer interpretation: Agree with computer - Labs Labs: Microbiology 03/26/23 18:35 Wound Culture - Preliminary Foot - Right Laboratory Tests 03/26/23 03/26/23 03/26/23 18:28 18:28 18:28 WBC 25.1 H RBC 3.63 L Hgb 10.5 L Hct 31.4 L MCV 86.5 MCH 28.9 MCHC 33.4 RDW 14.3 Plt Count 353 MPV 10.6 Neut # (Auto) Not Reportable Lymph # (Auto) Not Reportable Gregg # (Auto) Not Reportable Eos # (Auto) Not Reportable Baso # (Auto) Not Reportable Absolute Nucleated RBC Not Reportable Total Counted 100 Band Neuts % (Manual) 2 Abnorm Lymph % (Manual) 0 Nucleated RBC % Not Reportable Neutrophils # (Manual) 23.6 H Lymphocytes # (Manual) 1.0 L Monocytes # (Manual) 0.5 Eosinophils # (Manual) 0.0 Basophils # (Manual) 0.0 Differential Comment MANUAL DIFFERENTIAL Platelet Estimate NORMAL (130-450,000) Platelet Morphology NORMAL APPEARANCE RBC Morph Micro Appear NORMAL APPEARANCE VBG pH VBG pCO2 VBG pO2 VBG HCO3 VBG Total CO2 VBG O2 Saturation VBG Base Excess Ionized Calcium Sodium 135 Potassium 2.6 L Chloride 99 L Carbon Dioxide 19 L Anion Gap 17.0 H BUN 27 H Creatinine 2.2 H Estimated GFR (MDRD) 32 L Glucose 167 H POC Whole Bld Glucose Lactic Acid 5.8 H* Calcium 8.9 Magnesium Total Bilirubin 0.6 AST 11 ALT 7 L Alkaline Phosphatase 152 H Total Protein 6.9 Albumin 2.9 L Globulin 4.0 Albumin/Globulin Ratio 0.7 L Nasal Adenovirus (PCR) Nasal B. parapertussis DNA (PCR) Nasal Coronavir 229E PCR Nasal Coronavir HKU1 PCR Nasal Coronavir NL63 PCR Nasal Coronavir OC43 PCR Nasal Enterovir/Rhinovir PCR Nasal Influenza B PCR Nasal Influenza A PCR Nasal Parainfluen 1 PCR Nasal Parainfluen 2 PCR Nasal Parainfluen 3 PCR Nasal Parainfluen 4 PCR Nasal RSV (PCR) Nasal B.pertussis DNA PCR Nasal C.pneumoniae (PCR) Matt Human Metapneumo PCR Nasal M.pneumoniae (PCR) Nasal SARS-CoV-2 (PCR) Serum Ketones NEGATIVE 03/26/23 03/26/23 03/26/23 18:28 18:32 22:06 WBC RBC Hgb Hct MCV MCH MCHC RDW Plt Count MPV Neut # (Auto) Lymph # (Auto) Gregg # (Auto) Eos # (Auto) Baso # (Auto) Absolute Nucleated RBC Total Counted Band Neuts % (Manual) Abnorm Lymph % (Manual) Nucleated RBC % Neutrophils # (Manual) Lymphocytes # (Manual) Monocytes # (Manual) Eosinophils # (Manual) Basophils # (Manual) Differential Comment Platelet Estimate Platelet Morphology RBC Morph Micro Appear VBG pH 7.373 VBG pCO2 33.1 L VBG pO2 34.8 VBG HCO3 18.8 L VBG Total CO2 19.9 L VBG O2 Saturation 63.7 VBG Base Excess -5.5 L Ionized Calcium Sodium 134 L Potassium 2.7 L Chloride 103 Carbon Dioxide 20 L Anion Gap 11.0 BUN 23 H Creatinine 1.8 H Estimated GFR (MDRD) 40 L Glucose 98 POC Whole Bld Glucose Lactic Acid Calcium 8.1 L Magnesium Total Bilirubin AST ALT Alkaline Phosphatase Total Protein Albumin Globulin Albumin/Globulin Ratio Nasal Adenovirus (PCR) NOT DETECTED Nasal B. parapertussis DNA (PCR) NOT DETECTED Nasal Coronavir 229E PCR NOT DETECTED Nasal Coronavir HKU1 PCR NOT DETECTED Nasal Coronavir NL63 PCR NOT DETECTED Nasal Coronavir OC43 PCR NOT DETECTED Nasal Enterovir/Rhinovir PCR NOT DETECTED Nasal Influenza B PCR NOT DETECTED Nasal Influenza A PCR NOT DETECTED Nasal Parainfluen 1 PCR NOT DETECTED Nasal Parainfluen 2 PCR NOT DETECTED Nasal Parainfluen 3 PCR NOT DETECTED Nasal Parainfluen 4 PCR NOT DETECTED Nasal RSV (PCR) NOT DETECTED Nasal B.pertussis DNA PCR NOT DETECTED Nasal C.pneumoniae (PCR) NOT DETECTED Matt Human Metapneumo PCR NOT DETECTED Nasal M.pneumoniae (PCR) NOT DETECTED Nasal SARS-CoV-2 (PCR) NOT DETECTED Serum Ketones 03/26/23 03/27/23 03/27/23 22:06 06:32 06:32 WBC RBC Hgb Hct MCV MCH MCHC RDW Plt Count MPV Neut # (Auto) Lymph # (Auto) Gregg # (Auto) Eos # (Auto) Baso # (Auto) Absolute Nucleated RBC Total Counted Band Neuts % (Manual) Abnorm Lymph % (Manual) Nucleated RBC % Neutrophils # (Manual) Lymphocytes # (Manual) Monocytes # (Manual) Eosinophils # (Manual) Basophils # (Manual) Differential Comment Platelet Estimate Platelet Morphology RBC Morph Micro Appear VBG pH 7.450 H VBG pCO2 VBG pO2 VBG HCO3 VBG Total CO2 VBG O2 Saturation VBG Base Excess Ionized Calcium YES 1.04 L Sodium 136 Potassium 2.8 L Chloride 108 Carbon Dioxide 19 L Anion Gap 9.0 BUN 24 H Creatinine 2.0 H Estimated GFR (MDRD) 35 L Glucose 96 POC Whole Bld Glucose Lactic Acid 1.8 Calcium 8.1 L Magnesium 1.9 Total Bilirubin AST ALT Alkaline Phosphatase Total Protein Albumin Globulin Albumin/Globulin Ratio Nasal Adenovirus (PCR) Nasal B. parapertussis DNA (PCR) Nasal Coronavir 229E PCR Nasal Coronavir HKU1 PCR Nasal Coronavir NL63 PCR Nasal Coronavir OC43 PCR Nasal Enterovir/Rhinovir PCR Nasal Influenza B PCR Nasal Influenza A PCR Nasal Parainfluen 1 PCR Nasal Parainfluen 2 PCR Nasal Parainfluen 3 PCR Nasal Parainfluen 4 PCR Nasal RSV (PCR) Nasal B.pertussis DNA PCR Nasal C.pneumoniae (PCR) Matt Human Metapneumo PCR Nasal M.pneumoniae (PCR) Nasal SARS-CoV-2 (PCR) Serum Ketones 03/27/23 07:12 WBC RBC Hgb Hct MCV MCH MCHC RDW Plt Count MPV Neut # (Auto) Lymph # (Auto) Gregg # (Auto) Eos # (Auto) Baso # (Auto) Absolute Nucleated RBC Total Counted Band Neuts % (Manual) Abnorm Lymph % (Manual) Nucleated RBC % Neutrophils # (Manual) Lymphocytes # (Manual) Monocytes # (Manual) Eosinophils # (Manual) Basophils # (Manual) Differential Comment Platelet Estimate Platelet Morphology RBC Morph Micro Appear VBG pH VBG pCO2 VBG pO2 VBG HCO3 VBG Total CO2 VBG O2 Saturation VBG Base Excess Ionized Calcium Sodium Potassium Chloride Carbon Dioxide Anion Gap BUN Creatinine Estimated GFR (MDRD) Glucose POC Whole Bld Glucose 95 Lactic Acid Calcium Magnesium Total Bilirubin AST ALT Alkaline Phosphatase Total Protein Albumin Globulin Albumin/Globulin Ratio Nasal Adenovirus (PCR) Nasal B. parapertussis DNA (PCR) Nasal Coronavir 229E PCR Nasal Coronavir HKU1 PCR Nasal Coronavir NL63 PCR Nasal Coronavir OC43 PCR Nasal Enterovir/Rhinovir PCR Nasal Influenza B PCR Nasal Influenza A PCR Nasal Parainfluen 1 PCR Nasal Parainfluen 2 PCR Nasal Parainfluen 3 PCR Nasal Parainfluen 4 PCR Nasal RSV (PCR) Nasal B.pertussis DNA PCR Nasal C.pneumoniae (PCR) Matt Human Metapneumo PCR Nasal M.pneumoniae (PCR) Nasal SARS-CoV-2 (PCR) Serum Ketones - Rads (name of study) Right foot x-ray demonstrates atherosclerosis and subcutaneous emphysema Relevant Findings:: Final report received, EMP independent interpretation of test PD Medical Decision Making - ED course ED course: Labs are notable for significant leukocytosis to 25,000, no evidence of acidosis on venous gas but does have a lactic acidosis of 5.8 consistent with septic shock. He has acute on chronic renal insufficiency, prior creatinine before today was November and it was 1.9. He has significant hypokalemia which is repleted IV. 52-year-old gentleman with uncontrolled noncompliant diabetes presents with diabetic foot infection that has an apparent necrotizing component to it. He was seen immediately on arrival and broad-spectrum antibiotics with Zosyn, clindamycin, and vancomycin were ordered. A culture was taken as well as blood cultures. We have no orthopedics on-call and within 10 minutes of his arrival I had the health dehydration unit operator looking for bed for transfer. Given the [facility] over capacity issues there may be a significant delay to transfer. [facility] declined at 9:20 PM noting they are beyond capacity. Case was reviewed there by Dr. Raman who felt it was probably more likely a diabetic foot infection than an NSTI. I did speak with our local surgeon, Dr. Jackson notes she is not credentialed to do amputations and has not really done any since residency. Spoke with er ctr at and they are considering case. Care to Dr Luu at 10pm change of shift pending hope, expedient transfer to a tertiary facility. - Critical Care Time(min): 45 Time Includes: Direct patient care, Review records, Reassess patient, Document care, Coordinate care, Medical consult Data interpretation: Labs, Pulse ox Procedures excluded from critical care time: EKG Departure - Departure Disposition: 02 Transfer Acute Care Hosp Clinical Impression: Diabetic infection of right foot Sepsis Qualifiers: Sepsis type: sepsis due to unspecified organism Sepsis acute organ dysfunction status: with acute organ dysfunction Severe sepsis acute organ dysfunction type: acute renal failure Acute renal failure type: unspecified Severe sepsis shock status: with septic shock Qualified Code(s): A41.9 - Sepsis, unspecified organism Condition: Stable Forms: PCP List
[2023-03-26] MEDS ORDERED: VANCOMYCIN 1 GM VIAL ONE (18:11)
[2023-03-26] MEDS ORDERED: CLINDAMYCIN 900 MG/50 ML 900 MG/50 ML BAG IV ONE (18:13)
[2023-03-26 18:36] LABS: VBG HCO3 18.8 mmol/L (23-28); VBG PCO2 33.1 mmHg (41-51); VBG PH 7.373 (7.31-7.41); VBG PO2 34.8 mmHg (25-47)
[2023-03-26 18:37] LABS: VBG BASE EXCESS -5.5 mmol/L (-2 - +2); VBG OXYGEN SATURATION 63.7 % (60-80); VBG TOTAL CO2 19.9 mmol/L (24-29)
--- NOTE | 2023-03-26 18:41 | XRAY Report ---
PROCEDURE: Foot 3 View RT INDICATIONS: foot infection TECHNIQUE: 3 views of the foot were acquired. COMPARISON: None. FINDINGS: Bones: No fractures or dislocations. No suspicious bony lesions. Soft tissues: Subcutaneous emphysema is noted throughout the plantar forefoot with likely ulceration . Atherosclerotic vascular calcifications. IMPRESSION: The patient is noted throughout the plantar forefoot with likely ulcer. Correlate for necrotizing sof t tissue infection. No definite osseous abnormality is seen. If indicated, MRI of the foot can be obt ained for further evaluation to exclude osteomyelitis. Reviewed by: Justin Medrano MD on 03/26/2023 6:40 PM PST Approved by: Justin Medrano MD on 03/26/2023 6:40 PM PST Station ID: [id number]
[2023-03-26 18:46] LABS: BASOPHILS % (AUTO) 0.4 %; EOSINOPHILS % (AUTO) 0.1 %; HCT - HEMATOCRIT 31.4 % (42.0-52.0); HGB - HEMOGLOBIN 10.5 g/dL (14.0-18.0); MEAN CORPUSCULAR HEMOGLOBIN 28.9 pg (27.0-31.0); MEAN CORPUSCULAR HGB CONC 33.4 g/dL (32.0-36.0); MEAN CORPUSCULAR VOLUME 86.5 fL (80.0-94.0); MEAN PLATELET VOLUME 10.6 fL (7.4-11.4); MONOCYTES % (AUTO) 2.7 %; PLT - PLATELET COUNT 353 10^3/uL (130-450); RED BLOOD COUNT 3.63 10^6/uL (4.70-6.10); RED CELL DISTRIBUTION WIDTH 14.3 % (12.0-15.0); WHITE BLOOD COUNT 25.1 x10^3/uL (4.8-10.8)
[2023-03-26 18:52] LABS: ALBUMIN 2.9 g/dL (3.2-5.5)
[2023-03-26 18:53] LABS: ALBUMIN/GLOBULIN RATIO 0.7 (1.0-2.2); ALKALINE PHOSPHATASE 152 IU/L (42-121); ALT ALANINE AMINOTRANSFERASE 7 IU/L (10-60); AST ASPARTATE AMINOTRANSFERASE 11 IU/L (10-42); BILIRUBIN,TOTAL 0.6 mg/dL (0.2-1.0); BUN - BLOOD UREA NITROGEN 27 mg/dL (6-20); CALCIUM 8.9 mg/dL (8.5-10.3); CARBON DIOXIDE - CO2 19 mmol/L (21-32); CHLORIDE 99 mmol/L (101-111); CREATININE 2.2 mg/dL (0.6-1.3); GFR - MDRD 32 (>89); GLUCOSE 167 mg/dL (74-104); POTASSIUM 2.6 mmol/L (3.5-4.5); SODIUM 135 mmol/L (135-145); TOTAL PROTEIN 6.9 g/dL (6.4-8.9)
[2023-03-26 18:55] LABS: LACTIC ACID, VENOUS 5.8 mmol/L (0.5-2.2)
[2023-03-26 19:05] LABS: ABNORMAL LYMPHS % (MANUAL) 0 %
[2023-03-26 19:14] LABS: KETONES, SERUM (ACETEST) NEGATIVE (NEGATIVE)
[2023-03-26 19:15] LABS: BAND NEUTROPHILS % (MANUAL) 2 %; LYMPHOCYTES % (MANUAL) 4 %; MONOCYTES # (MANUAL) 0.5 10^3/uL (0.0-1.0); NEUTROPHILS # (MANUAL) 23.6 10^3/uL (1.5-6.6)
[2023-03-26 19:18] LABS: DIFFERENTIAL COMMENT MANUAL DIFFERENTIAL; PLATELET ESTIMATE, MANUAL NORMAL (130-450,000) (NORMAL); PLATELET MORPHOLOGY NORMAL APPEARANCE (NORMAL); RBC MORPHOLOGY (MULTIPLE) NORMAL APPEARANCE (NORMAL)
[2023-03-26] MEDS ORDERED: POTASSIUM CHLOR 10 MEQ/100 ML 10 MEQ/100 ML BAG IV STA ×3 (19:24→22:53)
[2023-03-26] MEDS ORDERED: LORazepam 2 MG/ML VIAL IVP STA (19:37)
[2023-03-26 19:53] LABS: B. PARAPERTUSSIS- RESP PCR PAN NOT DETECTED; B. PERTUSSIS- RESP PCR PANEL NOT DETECTED; C. PNEUMONIAE- RESP PCR PANEL NOT DETECTED; CORONAVIRUS 229E-RESP PCR NOT DETECTED; CORONAVIRUS HKU1-RESP PCR NOT DETECTED; CORONAVIRUS NL63-RESP PCR NOT DETECTED; CORONAVIRUS OC43-RESP PCR NOT DETECTED; HUMAN METAPNEUMOVIRUS NOT DETECTED; INFLUENZA A- RESP PCR PANEL NOT DETECTED; INFLUENZA B - RESP PCR PANEL NOT DETECTED; M. PNEUMONIAE- RESP PCR PANEL NOT DETECTED; PARAINFLUENZA VIRUS 1 NOT DETECTED; PARAINFLUENZA VIRUS 2 NOT DETECTED; PARAINFLUENZA VIRUS 3 NOT DETECTED; PARAINFLUENZA VIRUS 4 NOT DETECTED; RHINOVIRUS/ENTEROVIRUS NOT DETECTED; RSV- RESP PCR PANEL NOT DETECTED; SARS-CoV-2 -RESP PCR PANEL NOT DETECTED
[2023-03-26] MEDS ORDERED: LACTATED RINGERS IV STA (20:43)
[2023-03-26] MEDS ORDERED: HYDROmorphone 1 MG/ML CARPUJECT IVP STA ×2 (21:45→22:48)
[2023-03-26] MEDS ORDERED: PIPERACILLIN/TAZOBACTAM 3.375 GM in SODIUM CHLORIDE 0.9% MINIBAG 100 ML IV SCH (22:00)
[2023-03-26 22:29] LABS: CALCIUM 8.1 mg/dL (8.5-10.3); CREATININE 1.8 mg/dL (0.6-1.3); POTASSIUM 2.7 mmol/L (3.5-4.5)
[2023-03-26] MEDS ORDERED: SODIUM CHLORIDE 0.9% 1,000 ML IV STA (22:54)
[2023-03-27] MEDS: CLINDAMYCIN 600 MG/50 ML 50 ML IV SCH ×2 (01:47→09:08)
[2023-03-27] MEDS: PIPERACILLIN/TAZOBACTAM 3.375 GM in SODIUM CHLORIDE 0.9% MINIBAG 100 ML IV SCH ×2 (02:22→11:15)
[2023-03-27] MEDS ORDERED: POTASSIUM CHLOR 10 MEQ/100 ML 10 MEQ/100 ML BAG IV ONE (03:16)
[2023-03-27] MEDS ORDERED: POTASSIUM CHLOR 10 MEQ/100 ML 10 MEQ/100 ML BAG IV STA ×2 (03:16→06:12)
[2023-03-27] MEDS ORDERED: MAGNESIUM SULFATE 2 GRAM 2 GM/50 ML BAG IV ONE (03:18)
--- NOTE | 2023-03-27 03:18 | ED Physician Documentation ---
ED Addendum - Addendum Addendum: 03/27/23 03:17 Patient with persistent hypokalemia. k rider and oral potassium ordered. repeat labs for am. 03/27/23 03:41 Patient's area of discoloration on foot has not spread beyond the borders I dottie on at 10pm therefore suspect this is diabetic foot ulcer and not nec fasciitis given no rapid spread. antibiotics on board and calls placed to [facility] and all area hospitals. plan to endorse to incoming daytime ED MD at 7am shift change.
[2023-03-27] MEDS: POTASSIUM CHLORIDE 20 MEQ/15 ML UDC PO STA ×2 (04:06→04:43)
[2023-03-27] MEDS ORDERED: SODIUM CHLORIDE 0.9% 250 ML IV STA (04:18)
[2023-03-27 07:05] LABS: BUN - BLOOD UREA NITROGEN 24 mg/dL (6-20); CALCIUM 8.1 mg/dL (8.5-10.3); CARBON DIOXIDE - CO2 19 mmol/L (21-32); CHLORIDE 108 mmol/L (101-111); GFR - MDRD 35 (>89); GLUCOSE 96 mg/dL (74-104); IONIZED CALCIUM IF INDICATED YES; MAGNESIUM 1.9 mg/dL (1.7-2.3); POTASSIUM 2.8 mmol/L (3.5-4.5); SODIUM 136 mmol/L (135-145)
[2023-03-27 07:16] LABS: CALCIUM, IONIZED 1.04 mmol/L (1.15-1.33); VBG PH 7.45 (7.31-7.41)
[2023-03-27] MEDS ORDERED: LACTATED RINGERS 1,000 ML IV STA (09:59)
[2023-03-27] MEDS ORDERED: CALCIUM GLUC 1,000MG/50ML-NACL 1,000 MG/50 ML BAG IV STA (10:01)
--- NOTE | 2023-03-27 10:05 | ED Physician Documentation ---
ED Addendum - Addendum Addendum: 03/27/23 10:02 The patient has been resting this morning. Overnight vitals are showing normal heart rate below 100 since mid overnight. His blood pressures mildly hypotensive in the 90s systolic. We can give some IV fluid bolus. Morning labs showed still a persisting low potassium. Magnesium was normal. His calcium level was also low at 8.1. I ordered LR fluid bolus and also further potassium IV riders and a calcium gluconate IV supplement as well. I did talk with Dr. Connor Camargo the hospitalist for [facility]. I reviewed the patient's presentation and labs and the concerns for diabetic wound infections and thus not having orthopedic on-call and no beds available at the moment. They were excepting of transfer still. The patient is not having extended redness or pain much above the previous areas demarcated overnight. Lower suspicion at this point for spreading soft tissue infection such as necrotizing fasciitis. However still concerning for infection at the site with sepsis markers.
[2023-03-27] MEDS: POTASSIUM CHLOR 10 MEQ/100 ML 10 MEQ/100 ML BAG IV SCH ×2 (10:15→11:15)
[2023-03-27 10:44] VITALS: BP 90/57; O2SAT 100
== END 2023-03-27 11:25 | disposition short-term general hospital (02) ==
LOC: EDUNIT# → ED 17:58
DX: L08.9 Local infection of the skin and subcutaneous tissue, unspecified (principal); R65.21 Severe sepsis with septic shock; N17.9 Acute kidney failure, unspecified; E11.65 Type 2 diabetes mellitus with hyperglycemia; F17.200 Nicotine dependence, unspecified, uncomplicated; Z11.52 Encounter for screening for COVID-19; Z79.899 Other long term (current) drug therapy; Z79.84 Long term (current) use of oral hypoglycemic drugs
CPT/HCPCS: 36415; 73630; 80048; 80053; 82009; 82330; 82803; 83605; 83735; 85025; 87040; 87070; 87077; 87150; 87181; 87205; 87633; 93005; 96365; 96366; 96368; 96375; 99285; 99291; A9270; J1170; J2060; J3370; J7120

== ENCOUNTER 2023-03-27 11:20 | Outpatient (CLI) | payer MEDICAID | END 2023-03-27 23:59 | disposition short-term general hospital (02) | LOC: EMS 11:20 | PROVIDERS: ATTEND Emergency Medicine | DX: A41.9 Sepsis, unspecified organism (principal) | CPT/HCPCS: A0425; A0428 ==